=== PATIENT | female | born 1940 | race Caucasian/White ===

== ENCOUNTER 2017-03-20 11:23 | Inpatient (IN) | payer OTHER, MEDICARE, BC ==
--- NOTE | 2017-03-20 12:10 | EDM.PDOC ---
ED HPI GENERAL MEDICAL PROBLEM - General Chief Complaint: Lower Extremity Injury/Pain Stated Complaint: FELL Time Seen by Provider: 03/20/17 12:05 Source of Information: Reports: Patient History Limitations: Reports: No Limitations - History of Present Illness INITIAL COMMENTS - FREE TEXT/NARRATIVE: Pt left acu today and she caugt the ledge on the sidewalk and lost her balance. No one was with the pt when she fell. She can not exactly remember what happened. Duration: Hour(s): Location: Reports: Lower Extremity, Right Associated Symptoms: Reports: No Other Symptoms Right Hip Pain Score (Numeric/FACES): 4 - Related Data Allergies Allergy/AdvReac Type Severity Reaction Status Date / Time venom-honey bee Allergy Severe Anaphylactic Verified 03/20/17 10:28 [bee venom (honey bee)] Shock latex Allergy Unknown Rash Verified 03/20/17 10:28 Penicillins Allergy Unknown Rash Verified 03/20/17 10:28 Sulfa (Sulfonamide Allergy Unknown Shortness Verified 03/20/17 10:28 Antibiotics) of Breath sulfamethoxazole Allergy Unknown Shortness Verified 03/20/17 10:28 [From Bactrim] of Breath acetaminophen AdvReac Unknown Stomach Verified 03/20/17 10:28 [From Darvocet-N 100] Upset albuterol AdvReac Unknown Stomach Verified 03/20/17 10:28 Upset alprazolam [From Xanax] AdvReac Unknown Stomach Verified 03/20/17 10:28 Upset erythromycin base AdvReac Unknown Stomach Verified 03/20/17 10:28 [Erythromycin Base] Upset esomeprazole magnesium AdvReac Unknown Stomach Verified 03/20/17 10:28 [From Nexium] Upset ibuprofen [From Advil] AdvReac Unknown Stomach Verified 03/20/17 10:28 Upset propoxyphene HCl AdvReac Unknown Stomach Verified 03/20/17 10:28 [From Darvon] Upset propoxyphene napsylate AdvReac Unknown Stomach Verified 03/20/17 10:28 [From Darvocet-N 100] Upset trimethoprim [From Bactrim] AdvReac Unknown Stomach Verified 03/20/17 10:28 Upset metal Allergy Unknown Rash Uncoded 03/20/17 10:28 Home Meds: Home Meds Aspirin [Ecotrin] 81 mg PO DAILY 12/03/12 [History] Multivitamins 1 cap PO DAILY 12/03/12 [History] diphenhydrAMINE [Benadryl] 25 mg PO BEDTIME PRN 12/03/12 [History] Nitroglycerin [Nitrostat] 1 tab PO ASDIRECTED PRN 09/28/13 [History] Hydrocodone/Acetaminophen [Hycet 7.5 mg-325 mg/15 ml Marie] 15 ml PO Q4HR PRN # 473 solution 09/30/13 [Rx] Clopidogrel Bisulfate [Plavix] 75 mg PO DAILY 12/16/13 [History] Clindamycin HCl 150 mg PO BID PRN 02/16/15 [History] Diazepam [Valium] 5 mg PO DAILY 02/16/15 [History] Metoprolol Tartrate 25 mg PO BID 06/08/15 [History] Pantoprazole [ProTONIX] 40 mg PO DAILY 08/24/15 [History] atorvaSTATin [Lipitor] 40 mg PO BEDTIME 08/24/15 [History] Social & Family History - Tobacco Use Second Hand Smoke Exposure: No - Alcohol Use Days Per Week of Alcohol Use: 0 - Recreational Drug Use Recreational Drug Use: No Review of Systems - Review of Systems Review Of Systems: See Below Constitutional: Reports: No Symptoms Eyes: Reports: No Symptoms Ears: Reports: No Symptoms Nose: Reports: No Symptoms Mouth/Throat: Reports: No Symptoms Respiratory: Reports: No Symptoms Cardiovascular: Reports: No Symptoms GI/Abdominal: Reports: No Symptoms Genitourinary: Reports: No Symptoms Musculoskeletal: Reports: Other (pain in the pelvis and rt hip area. ) Skin: Reports: No Symptoms ED EXAM, GENERAL - Physical Exam Exam: See Below Free Text/Narrative:: pt arrived with pain in the rt hip/ She fell in the parking lot by the clinic. She developed acute pain in the rt hip/ She has an artificial leg on at the time. Exam Limited By: No Limitations General Appearance: Alert, Anxious, Moderate Distress Ears: Normal TMs Nose: Normal Inspection Throat/Mouth: Normal Inspection Head: Atraumatic Neck: Normal Inspection Respiratory/Chest: No Respiratory Distress Cardiovascular: Regular Rate, Rhythm GI/Abdominal: Soft, Non-Tender (Female) Exam: Deferred Rectal (Female) Exam: Deferred Back Exam: Normal Inspection Extremities: Normal Inspection, Other (pt has pain in the rt groin area. ) Neurological: Alert, Oriented, Normal Cognition Psychiatric: Depressed Mood Course - Vital Signs Last Recorded V/S: Last Vital Signs Temp 36.0 C 03/20/17 11:52 Pulse 57 L 03/20/17 11:52 Resp 16 03/20/17 11:52 BP 153/53 H 03/20/17 11:52 Pulse Ox 98 03/20/17 11:52 - Re-Assessments/Exams Free Text/Narrative Re-Assessment/Exam: 03/20/17 13:06 Xray revealed a impacted fracture of the rt hip Departure - Departure Time of Disposition: 13:08 Disposition: Admitted As Inpatient 68 Condition: Fair Clinical Impression: Fracture of right hip, Amputation of right lower extremity below knee, Weight loss - Discharge Information Referrals: Sonido Stein MD [Primary Care Provider] - Forms: ED Department Discharge Care Plan Goals: admit to Dr arriola.
--- NOTE | 2017-03-20 12:40 | CR ---
Hip Min 2V or 3V w Pelvis Rt HISTORY: pt fell outside of the clinic. She had been at acu FINDINGS: There is an acute, mildly impacted subcapital fracture right femoral neck. Slight valgus de formity is present. No other fracture or dislocation is identified. Bony structures are osteopenic. M ild degenerative changes came seen inferior aspect of the SI joint bilaterally. There is scattered at herosclerotic vascular calcification. Soft tissues are unremarkable. I see no joint effusion. IMPRESSION: Acute, mildly impacted subcapital fracture right femoral neck. Generalized osteopenia is noted. There is scattered atherosclerotic vascular calcification. Findings were discussed with Dr. Armando at 1234 hours.
[2017-03-20] MEDS ORDERED: Sodium Chloride 0.9% 1,000 ML IV SCH (13:15)
--- NOTE | 2017-03-20 14:01 | CR ---
Chest 1V Frontal HISTORY: preop. COMPARISON: 01/07/2012 FINDINGS: Lungs appear clear and normally aerated. Cardiomediastinal silhouette is within normal limits. Athero sclerotic aorta is redemonstrated. Old median sternotomy changes and multiple mediastinal surgical cl ips are noted. No vascular redistribution or pleural fluid can be seen. Bony structures are diffusely osteopenic. There are chronic rotator cuff tear changes both shoulders. IMPRESSION: Old median sternotomy changes. Generalized osteopenia. Chronic rotator cuff tear changes both shoulde rs. No acute cardiopulmonary disease is identified.
[2017-03-20] MEDS ORDERED: Bupivacaine 0.5%/EPINEPHrine 1:200,000 50 ML MDV ONE (14:50)
[2017-03-20] MEDS ORDERED: Povidone-Iodine 10% Soln 118.25 ML Bottle ONE (14:51)
--- NOTE | 2017-03-20 14:53 | PCM.HP ---
H&P History of Present Illness - General Date of Service: 03/20/17 Admit Problem/Dx: Admission Diagnosis/Problem Admission Diagnosis/Problem Hip fracture requiring operative repair Source of Information: Patient, Family, Provider History Limitations: Reports: No Limitations - History of Present Illness Initial Comments - Free Text/Narative: Latrice presents to the emergency room today with right hip pain. She lost her balance and fell to the ground striking the right side of her pelvis earlier today. She had immediate left hip pain and required assistance to get off of the ground. She currently reports moderate sharp and throbbing pain in the right hip. Any sort of movement makes the pain worse. Pain medications have helped to make the pain more tolerable. Initially her pain was quite severe. She felt well prior to the accident this afternoon. No recent difficulties with fevers but she has had some chills. She does not have a cough or shortness of breath. She reports that she's lost an additional 15 pounds in recent months and has been trying very hard to maintain or even gained weight. No recent difficulties with diarrhea. Workup in the emergency room revealed a subcapital right femoral neck fracture. She will be admitted for surgical intervention. Right Hip Pain Score (Numeric/FACES): 4 - Related Data Allergies/Adverse Reactions: Allergies Allergy/AdvReac Type Severity Reaction Status Date / Time venom-honey bee Allergy Severe Anaphylactic Verified 03/20/17 10:28 [bee venom (honey bee)] Shock latex Allergy Unknown Rash Verified 03/20/17 10:28 Penicillins Allergy Unknown Rash Verified 03/20/17 10:28 Sulfa (Sulfonamide Allergy Unknown Shortness Verified 03/20/17 10:28 Antibiotics) of Breath sulfamethoxazole Allergy Unknown Shortness Verified 03/20/17 10:28 [From Bactrim] of Breath acetaminophen AdvReac Unknown Stomach Verified 03/20/17 10:28 [From Darvocet-N 100] Upset albuterol AdvReac Unknown Stomach Verified 03/20/17 10:28 Upset alprazolam [From Xanax] AdvReac Unknown Stomach Verified 03/20/17 10:28 Upset erythromycin base AdvReac Unknown Stomach Verified 03/20/17 10:28 [Erythromycin Base] Upset esomeprazole magnesium AdvReac Unknown Stomach Verified 03/20/17 10:28 [From Nexium] Upset ibuprofen [From Advil] AdvReac Unknown Stomach Verified 03/20/17 10:28 Upset propoxyphene HCl AdvReac Unknown Stomach Verified 03/20/17 10:28 [From Darvon] Upset propoxyphene napsylate AdvReac Unknown Stomach Verified 03/20/17 10:28 [From Darvocet-N 100] Upset trimethoprim [From Bactrim] AdvReac Unknown Stomach Verified 03/20/17 10:28 Upset metal Allergy Unknown Rash Uncoded 03/20/17 10:28 Home Medications: Home Meds Aspirin [Ecotrin] 81 mg PO DAILY 12/03/12 [History] Multivitamins 1 cap PO DAILY 12/03/12 [History] diphenhydrAMINE [Benadryl] 25 mg PO BEDTIME PRN 12/03/12 [History] Nitroglycerin [Nitrostat] 1 tab PO ASDIRECTED PRN 09/28/13 [History] Hydrocodone/Acetaminophen [Hycet 7.5 mg-325 mg/15 ml Marie] 15 ml PO Q4HR PRN # 473 solution 09/30/13 [Rx] Clopidogrel Bisulfate [Plavix] 75 mg PO DAILY 12/16/13 [History] Clindamycin HCl 150 mg PO BID PRN 02/16/15 [History] Diazepam [Valium] 5 mg PO DAILY 02/16/15 [History] Metoprolol Tartrate 25 mg PO BID 06/08/15 [History] Pantoprazole [ProTONIX] 40 mg PO DAILY 08/24/15 [History] atorvaSTATin [Lipitor] 40 mg PO BEDTIME 08/24/15 [History] Past Medical History HEENT History: Reports: Allergic Rhinitis, Hard of Hearing, Impaired Vision Cardiovascular History: Reports: Arrhythmia, CAD, High Cholesterol, Hypertension , [place] Respiratory History: Reports: Asthma, Pneumonia, Recurrent, Sleep Apnea Gastrointestinal History: Reports: Cholelithiasis, Chronic Constipation, GERD, Hiatal Hernia [employer] History: Reports: Musculoskeletal History: Reports: Back Pain, Chronic, Neck Pain, Chronic Other Musculoskeletal History: LAMIN tiggers. torn rotator cuff Neurological History: Reports: Other (See Below) Other Neuro History: trigeminal nueroalgia Endocrine/Metabolic History: Reports: Diabetes, Type II, Obesity/BMI 30+ Hematologic History: Reports: B12 Deficiency Oncologic (Cancer) History: Reports: Cervix - Infectious Disease History Infectious Disease History: Reports: C-Difficile, Measles, Mumps - Past Surgical History HEENT Surgical History: Reports: Naso-Sinus Surgery, Tonsillectomy, Other (See Below) Other HEENT Surgeries/Procedures: clef lip repair Cardiovascular Surgical History: Reports: Coronary Artery Bypass, Percutaneous Transluminal Angioplasty Other Cardiovascular Surgeries/Procedures: x 3 GI Surgical History: Reports: Appendectomy, Bariatric Procedure, Cholecystectomy , Colonoscopy, EGD, Maddy Fundoplication Other GI Surgeries/Procedures: sleeve gastrectomy Female Surgical History: Reports: Hysterectomy Musculoskeletal Surgical History: Reports: Carpal Tunnel, Knee Replacement, Shoulder Surgery, Other (See Below) Other Musculoskeletal Surgeries/Procedures:: BKA right leg. lipomas removed from arms and legs Social & Family History - Family History Cardiac: Reports: CAD (father) - Tobacco Use Smoking Status *Q: Never Smoker Second Hand Smoke Exposure: No - Caffeine Use Caffeine Use: Reports: None - Alcohol Use Days Per Week of Alcohol Use: 0 - Recreational Drug Use Recreational Drug Use: No H&P Review of Systems - Review of Systems: Review Of Systems: See Below Free Text/Narrative: A complete 12 point review of systems was obtained. Pertinent positives and negatives are noted in the history of present illness. All other systems were reviewed and were negative except as noted. Exam - Exam Exam: See Below - Vital Signs Vital Signs: Last Vital Signs Temp 36.5 C 03/20/17 14:42 Pulse 60 03/20/17 14:42 Resp 16 03/20/17 14:42 BP 136/63 03/20/17 14:42 Pulse Ox 99 03/20/17 14:42 Weight: 45.722 kg - Exam Quality Assessment: No: Supplemental Oxygen General: Alert, Oriented, Cooperative. No: Mild Distress HEENT: Conjunctiva Clear, Mucosa Moist & [place]. No: Scleral Icterus Neck: Supple, Trachea Midline Lungs: Clear to Auscultation, Normal Respiratory Effort Cardiovascular: Regular Rate, Regular Rhythm. No: Systolic Murmur GI/Abdominal Exam: Normal Bowel Sounds, Soft, Non-Tender, No Distention, No Mass Back Exam: Normal Inspection, Full Range of Motion Extremities: No Pedal Edema (On the left), Other (Right below the knee amputation). No: Increased Warmth Peripheral Pulses: 2+: Dorsalis Pedis (L) Skin: Warm, Dry, Intact Neuro Extensive - Mental Status: Alert, Oriented x3, Nl Response to Commands Neuro Extensive - Motor, Sensory, Reflexes: CN II-XII Intact. No: Dysarthria, Abnormal Motor, Tremor Psychiatric: Alert, Normal Affect - Patient Data Lab Results Last 24 hrs: Laboratory Results - last 24 hr 03/20/17 03/20/17 Range/Units 13:35 13:35 WBC 9.6 (4.5-11.0) K/uL RBC 3.82 (3.30-5.50) M/uL Hgb 11.9 L (12.0-15.0) g/dL Hct 36.9 (36.0-48.0) % MCV 97 (80-98) fL MCH 31 (27-31) pg MCHC 32 (32-36) % Plt Count 242 (150-400) K/uL Neut % (Auto) 71 H (36-66) % Lymph % (Auto) 23 L (24-44) % [place] % (Auto) 4 (2-6) % Eos % (Auto) 1 L (2-4) % Baso % (Auto) 0 (0-1) % Sodium 141 (140-148) mmol/L Potassium 3.6 (3.6-5.2) mmol/L Chloride 103 (100-108) mmol/L Carbon Dioxide 28 (21-32) mmol/L Anion Gap 10.1 (5.0-14.0) mmol/L BUN 36 H (7-18) mg/dL Creatinine 0.7 (0.6-1.0) mg/dL Est Cr Clr Drug Dosing 50.89 mL/min Estimated GFR (MDRD) > 60 (>60) Glucose 113 H (74-106) mg/dL Calcium 8.9 (8.5-10.1) mg/dL Total Bilirubin 1.3 H (0.2-1.0) mg/dL AST 37 D (15-37) U/L ALT 86 H (12-78) U/L Alkaline Phosphatase 92 (46-116) U/L Total Protein 6.1 L (6.4-8.2) g/dL Albumin 3.3 L (3.4-5.0) g/dL Globulin 2.8 (2.3-3.5) g/dL Albumin/Globulin Ratio 1.2 (1.2-2.2) Result Diagrams: 03/20/17 13:35 03/20/17 13:35 Imaging Impressions Last 24 hrs: Chest x-ray - images personally reviewed - history of sternotomy with wires present. No evidence for mass, infiltrate or effusion. Right hip x-ray - images personally reviewed - there is evidence for a mildly impacted subcapital right femoral neck fracture. No significant dislocation. EKG INTERPRETATION EKG Date: 03/20/17 Rhythm: NSR Rate (Beats/Min): 51 [place]: Normal P-Wave: Present QRS: Normal ST-T: Normal QT: Normal *Q Meaningful Use (ADM) - VTE *Q VTE Criteria *Q: VTE Pharmacological Contraindications *Q: Patient Scheduled Surgery - VTE Risk Assess *Q Each Risk Factor Represents 1 Point: None Total Score 1 Point Risk Factors: 0 Each Risk Factor Represents 2 Points: Age 60 - 74 Years Total Score 2 Point Risk Factors: 2 Each Risk Factor Represents 3 Points: None Total Score 3 Point Risk Factors: 0 Each Risk Factor Represents 5 Points: Hip, Pelvis or Leg Fracture, Less than 1 month Total Score 5 Point Risk Factors: 5 Venous Thromboembolism Risk Factor Score *Q: 7 - Stroke *Q Stroke Criteria *Q: - AMI *Q AMI Criteria *Q: - Problem List (1) Fracture of right hip SNOMED Code(s): 242108189 ICD Code: S72.001A - FRACTURE OF UNSP PART OF NECK OF RIGHT FEMUR, INIT Status: Acute Current Visit: Yes Qualifiers: Encounter type: initial encounter Fracture type: closed Qualified Code(s) : S72.001A - Fracture of unspecified part of neck of right femur, initial encounter for closed fracture (2) Weight loss SNOMED Code(s): 33656222 ICD Code: R63.4 - ABNORMAL WEIGHT LOSS Status: Acute Current Visit: Yes (3) Coronary artery disease SNOMED Code(s): 55783736 ICD Code: I25.10 - ATHSCL HEART DISEASE OF [place] CORONARY ARTERY W/O ANG PCTRS Status: Chronic Current Visit: Yes Qualifiers: Coronary Disease-Associated Artery/Lesion type: [place] artery [place] vs. transplanted heart: [place] heart Associated angina: without angina Qualified Code(s): I25.10 - Atherosclerotic heart disease of [place] coronary artery without angina pectoris (4) Peripheral vascular disease SNOMED Code(s): 645005079 ICD Code: I73.9 - PERIPHERAL VASCULAR DISEASE, UNSPECIFIED Status: Chronic Current Visit: Yes (5) Amputation of right lower extremity below knee SNOMED Code(s): 293756597 ICD Code: Z89.511 - ACQUIRED ABSENCE OF RIGHT LEG BELOW KNEE Status: Chronic Current Visit: Yes Problem List Initiated/Reviewed/Updated: Yes Orders Last 24hrs: Active Orders 24 hr Category Date Time Status Patient Status Manage Transfer [TRANSFER] Routine ADT 03/20/17 14:33 Ordered EKG Documentation Completion [RC] ASDIRECTED Care 03/20/17 13:25 Active UA W/MICROSCOPIC [URIN] Urgent Lab 03/20/17 14:42 Ordered Ketamine [Ketalar] Med 03/20/17 16:00 Active 23 mg IV ASDIRECTED Sodium Chloride 0.9% [Normal Saline] 1,000 ml Med 03/20/17 13:15 Active IV ASDIRECTED Tranexamic Acid [Cyklokapron] 460 mg Med 03/20/17 16:00 Active Sodium Chloride 0.9% [Normal Saline] 50 ml IV Q2H Resuscitation Status Routine Resus Stat 03/20/17 14:35 Ordered EKG 12 Lead [EK] Routine Ther 03/20/17 13:25 Ordered Medication Orders Sodium Chloride (Normal Saline) 1,000 mls @ 250 mls/hr IV ASDIRECTED [facility] Last Admin: 03/20/17 13:20 Dose: 250 mls/hr Tranexamic Acid 460 mg/ Sodium (Chloride) 54.6 mls @ 218.4 mls/hr IV Q2H [facility] Stop: 03/20/17 18:14 Ketamine HCl (Ketalar) 23 mg IV ASDIRECTED [facility] Stop: 03/20/17 18:00 Assessment/Plan Comment:: ASSESSMENT AND PLAN - Right hip fracture - secondary to fall. Requires operative intervention. No obvious contraindications to having surgery at this time. Functional status acceptable. She does have a [id number] amputation on the right side but generally gets around well with her prosthesis. No personal or family history of difficulty with anesthesia. No evidence for infection at this time. -Patient medically optimized for proposed surgery -Pain control -Consult Dr. Gonzalez for surgery -Physical therapy tomorrow Coronary artery disease - History of three-vessel bypass just shy of one year ago. No active anginal symptoms. Good functional status. She is on dual antiplatelet therapy. -Continue medical management including dual antiplatelet therapy and beta rodney Peripheral vascular disease - Previous large vessel stenting in the lower extremities. She did lose her right lower leg to vascular disease years ago. Seems stable at this time. On appropriate medical management. 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 She is interested in talking to dietary and the bariatric surgery folks for further recommendations. -Dietary consult -Consult Dr. Gonzalez/Rozina Donohue -Dietary supplements Maintenance issues - - DVT prophylaxis - mechanical on left leg - GI prophylaxis - PPI - Nutrition - not indicated - Neves catheter - will be placed prior to surgery, hopefully can remove tomorrow CODE STATUS - full code Admission justification - This patient will be admitted for inpatient services and is medically appropriate meeting medical necessity for inpatient admission as outlined in my documentation. I reasonably expect the patient will require inpatient services that span a period time over 2 midnights. I reasonably expect this patient to be discharged or transferred within 96 hours after admission to the [facility]. Disposition - anticipate discharge home after the hospital stay Primary care physician - Dr Emil Ibarra M.D.
[2017-03-20] MEDS ORDERED: Ketamine 500 MG/5 ML MDV IV SCH (16:00)
[2017-03-20] MEDS ORDERED: HYDROmorphone 0.5 MG/0.5 ML Syringe IVPUSH PRN (16:12)
[2017-03-20] MEDS ORDERED: Ondansetron 4 MG/2 ML SDV IV PRN (16:12)
[2017-03-20] MEDS ORDERED: Polyethylene Glycol 3350 Powder 17 GM Packet PO PRN (16:12)
[2017-03-20] MEDS ORDERED: Acetaminophen/HYDROcodone 325-5 MG Tab PO PRN (16:12)
[2017-03-20] MEDS ORDERED: Ondansetron 4 MG Tab.DIS PO PRN (16:12)
[2017-03-20] MEDS ORDERED: Acetaminophen 325 MG Tab PO PRN (16:12)
[2017-03-20] MEDS ORDERED: fentaNYL 100 MCG/2 ML SDV ONE (16:50)
[2017-03-20] MEDS ORDERED: Propofol 200 MG/20 ML SDV ONE (16:50)
[2017-03-20] MEDS ORDERED: Midazolam 1 MG/ML 2 ML SDV ONE (16:51)
--- NOTE | 2017-03-20 16:51 | PCM.CONS ---
H&P History of Present Illness - General Admit Problem/Dx: Admission Diagnosis/Problem Admission Diagnosis/Problem Hip fracture requiring operative repair - History of Present Illness Onset of Symptoms: Reports: Today, Sudden Symptom Onset Date: 03/20/17 Duration of Symptoms: Reports: Hour(s): Location: Reports: Lower Extremity, Right Quality: Reports: Ache, Burning Severity: Moderate Improves with: Reports: None Worsens with: Reports: Movement Associated Symptoms: Reports: No Other Symptoms Right Hip Pain Score (Numeric/FACES): 8 - Related Data Allergies/Adverse Reactions: Allergies Allergy/AdvReac Type Severity Reaction Status Date / Time venom-honey bee Allergy Severe Anaphylactic Verified 03/20/17 10:28 [bee venom (honey bee)] Shock latex Allergy Unknown Rash Verified 03/20/17 10:28 Penicillins Allergy Unknown Rash Verified 03/20/17 10:28 Sulfa (Sulfonamide Allergy Unknown Shortness Verified 03/20/17 10:28 Antibiotics) of Breath sulfamethoxazole Allergy Unknown Shortness Verified 03/20/17 10:28 [From Bactrim] of Breath acetaminophen AdvReac Unknown Stomach Verified 03/20/17 10:28 [From Darvocet-N 100] Upset albuterol AdvReac Unknown Stomach Verified 03/20/17 10:28 Upset alprazolam [From Xanax] AdvReac Unknown Stomach Verified 03/20/17 10:28 Upset erythromycin base AdvReac Unknown Stomach Verified 03/20/17 10:28 [Erythromycin Base] Upset esomeprazole magnesium AdvReac Unknown Stomach Verified 03/20/17 10:28 [From Nexium] Upset ibuprofen [From Advil] AdvReac Unknown Stomach Verified 03/20/17 10:28 Upset propoxyphene HCl AdvReac Unknown Stomach Verified 03/20/17 10:28 [From Darvon] Upset propoxyphene napsylate AdvReac Unknown Stomach Verified 03/20/17 10:28 [From Darvocet-N 100] Upset trimethoprim [From Bactrim] AdvReac Unknown Stomach Verified 03/20/17 10:28 Upset metal Allergy Unknown Rash Uncoded 03/20/17 10:28 Home Medications: Home Meds Aspirin [Ecotrin] 81 mg PO DAILY 12/03/12 [History] Multivitamins 1 cap PO DAILY 12/03/12 [History] diphenhydrAMINE [Benadryl] 25 mg PO BEDTIME PRN 12/03/12 [History] Nitroglycerin [Nitrostat] 1 tab PO ASDIRECTED PRN 09/28/13 [History] Hydrocodone/Acetaminophen [Hycet 7.5 mg-325 mg/15 ml Marie] 15 ml PO Q4HR PRN # 473 solution 09/30/13 [Rx] Clopidogrel Bisulfate [Plavix] 75 mg PO DAILY 12/16/13 [History] Clindamycin HCl 150 mg PO BID PRN 02/16/15 [History] Diazepam [Valium] 5 mg PO DAILY 02/16/15 [History] Metoprolol Tartrate 25 mg PO BID 06/08/15 [History] Pantoprazole [ProTONIX] 40 mg PO DAILY 08/24/15 [History] atorvaSTATin [Lipitor] 40 mg PO BEDTIME 08/24/15 [History] Past Medical History HEENT History: Reports: Allergic Rhinitis, Hard of Hearing, Impaired Vision Cardiovascular History: Reports: Arrhythmia, CAD, High Cholesterol, Hypertension , NM Respiratory History: Reports: Asthma, Pneumonia, Recurrent, Sleep Apnea Gastrointestinal History: Reports: Cholelithiasis, Chronic Constipation, GERD, Hiatal Hernia 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 torn rotator cuff Neurological History: Reports: Other (See Below) Other Neuro History: trigeminal nueroalgia Endocrine/Metabolic History: Reports: Diabetes, Type II, Obesity/BMI 30+ Hematologic History: Reports: B12 Deficiency Oncologic (Cancer) History: Reports: Cervix - Infectious Disease History Infectious Disease History: Reports: C-Difficile, Measles, Mumps - Past Surgical History HEENT Surgical History: Reports: Naso-Sinus Surgery, Tonsillectomy, Other (See Below) Other HEENT Surgeries/Procedures: clef lip repair Cardiovascular Surgical History: Reports: Coronary Artery Bypass, Percutaneous Transluminal Angioplasty Other Cardiovascular Surgeries/Procedures: x 3 GI Surgical History: Reports: Appendectomy, Bariatric Procedure, Cholecystectomy , Colonoscopy, EGD, Maddy Fundoplication Other GI Surgeries/Procedures: sleeve gastrectomy Female Surgical History: Reports: Hysterectomy Musculoskeletal Surgical History: Reports: Carpal Tunnel, Knee Replacement, Shoulder Surgery, Other (See Below) Other Musculoskeletal Surgeries/Procedures:: BKA right leg. lipomas removed from arms and legs Social & Family History - Family History Cardiac: Reports: CAD - Tobacco Use Smoking Status *Q: Never Smoker Second Hand Smoke Exposure: No - Caffeine Use Caffeine Use: Reports: None - Alcohol Use Days Per Week of Alcohol Use: 0 - Recreational Drug Use Recreational Drug Use: No H&P Review of Systems - Review of Systems: Review Of Systems: See Below General: Reports: No Symptoms HEENT: Reports: No Symptoms Pulmonary: Reports: No Symptoms Cardiovascular: Reports: No Symptoms Gastrointestinal: Reports: No Symptoms Genitourinary: Reports: No Symptoms Musculoskeletal: Reports: Leg Pain, Joint Pain Skin: Reports: No Symptoms Psychiatric: Reports: No Symptoms Neurological: Reports: Tremors Hematologic/Lymphatic: Reports: No Symptoms Immunologic: Reports: No Symptoms Exam - Exam Exam: See Below - Vital Signs Vital Signs: Last Vital Signs Temp 97.9 F 03/20/17 16:08 Pulse 64 03/20/17 16:08 Resp 16 03/20/17 16:08 BP 128/99 H 03/20/17 16:08 Pulse Ox 94 L 03/20/17 16:08 Weight: 100 lb 8 oz - Exam General: Alert, Oriented HEENT: PERRLA, Conjunctiva Clear, EOMI, Hearing Intact, Mucosa Moist & Fitzpatrick Neck: Supple, Trachea Midline Lungs: Normal Respiratory Effort Extremities: Leg Pain, Limited Range of Motion Skin: Warm, Intact Neuro Extensive - Mental Status: Alert, Oriented x3, Normal Mood/Affect, Normal Cognition, Memory Intact Psychiatric: Alert, Normal Affect Physical Exam Comments:: 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 Diabetic. - Patient Data Lab Results Last 24 hrs: Laboratory Results - last 24 hr 03/20/17 Range/Units 14:42 Urine Color Yellow Urine Appearance Clear Urine pH 5.0 (4.5-8.0) Ur Specific [place] 1.020 (1.008-1.030) Urine Protein Negative (NEGATIVE) mg/dL Urine Glucose (UA) Normal (NEGATIVE) mg/dL Urine Ketones 15 H (NEGATIVE) mg/dL Urine Occult Blood Negative (NEGATIVE) Urine Nitrite Negative (NEGATIVE) Urine Bilirubin Negative (NEGATIVE) Urine Urobilinogen Normal (NORMAL) mg/dL Ur Leukocyte Esterase Moderate (NEGATIVE) Urine RBC 0-5 (0-5) Urine WBC 5-10 H (0-5) Ur Epithelial Cells Few Amorphous Sediment Not seen Urine Bacteria Few Urine Mucus Few Result Diagrams: 03/20/17 13:35 03/20/17 13:35 Consult PN Assessment/Plan POD#: 0 Procedures: Procedures ASSAY ALKALINE PHOSPHATASE (07/23/13) ASSAY OF AMYLASE (09/28/13) ASSAY OF FERRITIN (09/28/13) ASSAY OF FOLIC ACID SERUM (09/28/13) ASSAY OF LIPASE (09/28/13) ASSAY OF MAGNESIUM (09/28/13) ASSAY OF PHOSPHORUS (07/23/13) ASSAY OF VITAMIN B-1 (09/28/13) BILIRUBIN TOTAL (07/23/13) CARDIAC REHAB/MONITOR (08/01/15) COMPLETE CBC AUTOMATED (07/23/13) COMPLETE CBC W/AUTO DIFF WBC (09/28/13) COMPREHEN METABOLIC PANEL (09/28/13) CT ABD & PELV W/CONTRAST (09/28/13) EGD DIAGNOSTIC BRUSH WASH (04/09/13) GLUCOSE BLOOD TEST (01/30/17) HEPATOBIL SYST IMAGE W/DRUG (06/25/13) INJ TRIGGER POINT 1/2 MUSCL (03/04/13) INJECT SACROILIAC JOINT (02/16/15) INJECT SPINE LUMBAR/SACRAL (02/01/16) INJECT TRIGGER POINTS 3/> (02/27/17) LAP INC HERNIA REPAIR (07/23/13) LAPAROSCOPIC CHOLECYSTECTOMY (07/23/13) MEASURE BLOOD OXYGEN LEVEL (09/28/13) MRI LUMBAR SPINE W/O DYE (11/01/14) NJX INTERLAMINAR LMBR/SAC (07/18/16) POLYSOM 6/>YRS CPAP 4/> PARM (05/13/13) ROUTINE VENIPUNCTURE (09/28/13) THERAPEUTIC EXERCISES (12/30/12) VIT D 1 25-DIHYDROXY (09/28/13) VITAMIN B-12 (09/28/13) (1) Fracture of right hip SNOMED Code(s): 104345676 Code(s): S72.001A - FRACTURE OF UNSP PART OF NECK OF RIGHT FEMUR, INIT Current Visit: Yes Qualifiers: Encounter type: initial encounter Fracture type: closed Qualified Code(s) : S72.001A - Fracture of unspecified part of neck of right femur, initial encounter for closed fracture Problem List Initiated/Reviewed/Updated: Yes My Orders Last 24 Hours: My Active Orders 03/20/17 16:35 Clindamycin Phosphate [Cleocin] 600 mg Sodium Chloride 0.9% [Normal Saline] 50 ml IV ONETIME 03/20/17 16:43 GLUCOSE POC LAB TO COLLECT [POC] Stat Plan: a: 76 female right subcapital femoral neck fracture P: to OR for R hip hemiarthroplasty. risk and benefits discussed with pt and
[2017-03-20] MEDS ORDERED: ePHEDrine 50 MG/ML SDV ONE (17:20)
[2017-03-20] MEDS: SODIUM CHLORIDE 0.9% IV SCH ×3 (17:36→18:09)
[2017-03-20] MEDS: TRANEXAMIC ACID IV SCH ×3 (17:36→18:09)
[2017-03-20] MEDS: Gentamicin 40 MG/ML 2 ML Vial ONE ×2 (17:47→18:05)
[2017-03-20] MEDS ORDERED: Vancomycin 1 GM SDV ONE (17:53)
[2017-03-20] MEDS ORDERED: Lactated Ringers 1,000 ML ONE (18:07)
[2017-03-20] MEDS ORDERED: Zolpidem 5 MG Tab PO PRN (18:23)
[2017-03-20] MEDS ORDERED: Ondansetron 4 MG/2 ML SDV IVPUSH PRN (18:23)
[2017-03-20] MEDS ORDERED: diphenhydrAMINE 50 MG/ML SDV IVPUSH PRN (18:23)
[2017-03-20] MEDS ORDERED: Naloxone 0.4 MG/ML SDV IVPUSH PRN (18:23)
[2017-03-20] MEDS ORDERED: Aluminum Hydroxide/Magnesium Hydroxide/Simethicone Susp 30 ML Cup PO PRN (18:23)
[2017-03-20] MEDS: Sodium Chloride 0.9% 1,000 ML IV SCH (19:51)
[2017-03-20] MEDS: Docusate Sodium 100 MG Cap PO SCH (20:05)
[2017-03-20] MEDS: Metoprolol Tartrate 25 MG Tab PO SCH (20:05)
[2017-03-20] MEDS: Magnesium Hydroxide 400 MG/5 ML Susp 30 ML Cup PO SCH (20:05)
[2017-03-20] MEDS: atorvaSTATin 20 MG Tab PO SCH (20:05)
[2017-03-20] MEDS: Diazepam 5 MG Tab PO PRN (20:47)
[2017-03-20] MEDS: Acetaminophen/HYDROcodone 325-5 MG Tab PO PRN (20:48)
[2017-03-20] MEDS: Sennosides 8.6 MG Tab PO SCH (20:50)
--- NOTE | 2017-03-20 23:04 | OR ---
DATE OF PROCEDURE: 03/20/2017 PREOPERATIVE DIAGNOSIS: Right femoral neck fracture closed. POSTOPERATIVE DIAGNOSIS: Right femoral neck fracture closed. PROCEDURE: Right hip hemiarthroplasty. PLANER TAILER: Irina Ruiz NP Physician assistant fitness manager, Irina Ruiz NP, played an essential role in assisting in this case, helping to position the patient, retract structures as needed, as well as suturing and cutting sutures as indicated. Her presence improved patient's safety and decreased operative time. ANESTHESIA: Spinal anesthesia plus conscious sedation. FLUID: Lactated Ringer solution. ESTIMATED BLOOD LOSS: 50 mL. COMPLICATIONS: None. SPECIMEN: None. DISCHARGE DISPOSITION: Stable to PACU. INDICATIONS FOR THE PROCEDURE: The patient left the Pain [facility] and then fell on her right hip. She was seen in the emergency department where she was found to have the above- mentioned diagnosis confirmed by imaging. She was then admitted to the hospitalist service. I then arranged for surgery at 4:30 in the afternoon. Risks and benefits of the procedure were explained to the patient. Informed consent was obtained. DETAILS OF PROCEDURE: The patient was seen preoperatively by myself, the anesthesia staff in the hospital room. The operative site was marked. She was brought to the operative suite by Anesthesia staff where spinal anesthesia plus conscious sedation was administered. She was placed into a left lateral recumbent position with an axillary roll. All extremities found to be well padded. Pegboard was used with gel pads for positioning. The right lower extremity was then prepped and draped in a sterile manner. Time-out was called identifying the correct patient, correct procedure, the correct site, and antibiotics had been with an appropriate period of time. An incision was made approximately 5 cm proximal to the greater trochanter down to the level of lesser trochanter. Bleeding during the case was controlled with Bovie electrocautery as well as Aquamantys cautery unit. This was carried down to the deep fascia. Gelpi's was used for retraction. I then went through the deep fascia and then used a Charnley retractor. I then went through the IT band and gluteus minimus around the capsule, leaving a small amount of capsule for closure and down the level of lesser trochanter. I then placed sharp Homans around the femoral neck and then slightly externally rotated the hip and made my saw cut using a reciprocating saw. I then used a corkscrew to remove the femoral neck and head. The head was 44 mm, which was what we were expecting based on her templating. I then inspected the acetabulum and did not see any other bone fragments. We then sequentially broached from 4-12. I then used a zero neck trial and then 44 head trial. This was very tight, but provided excellent stability. We then dislocated the hip and then removed all components, copiously irrigated with saline, inserted a 12 x 144 stem with a zero neck standard offset and 28/44 bipolar head. I tapped that in place and then relocated the hip. This provided excellent stability. We then irrigated copiously with saline. I applied a small amount of vancomycin powder inside the joint. We then closed the deep capsule, gluteus minimus, and gluteus medius with #5 Ethibond sutures. Although her tissue was very poor, we did get a very nice closure. The Charnley was then removed and irrigated with saline and then placed the remainder of the vancomycin powder below and above the deep fascia and then closed with #1 Stratafix in a running manner and then closed the subcu with a #2 Stratafix in a running manner followed by skin nadya, followed by sterile dressing. The patient was then allowed to be transferred to our hospital bed in a supine position and taken to the PACU in stable condition. Garland Gonzalez DO /[id number]
[2017-03-20] MEDS: Morphine 2 MG/ML Syringe IVPUSH PRN (23:21)
[2017-03-21] MEDS: oxyCODONE 5 MG Tab PO PRN ×4 (02:48→18:18)
[2017-03-21] MEDS: Diazepam 5 MG Tab PO PRN ×5 (02:49→22:33)
[2017-03-21] MEDS: Sodium Chloride 0.9% 1,000 ML IV SCH ×2 (03:48→13:54)
[2017-03-21] MEDS: Clopidogrel 75 MG Tab PO SCH (08:50)
[2017-03-21] MEDS: Metoprolol Tartrate 25 MG Tab PO SCH ×2 (08:50→21:22)
[2017-03-21] MEDS: Pantoprazole 40 MG Tab.CR PO SCH (08:50)
[2017-03-21] MEDS: Docusate Sodium 100 MG Cap PO SCH ×2 (08:54→21:23)
[2017-03-21] MEDS: Bisacodyl 5 MG Tab PO SCH (08:55)
[2017-03-21] MEDS: Magnesium Hydroxide 400 MG/5 ML Susp 30 ML Cup PO SCH ×2 (08:55→21:18)
[2017-03-21] MEDS: Sodium Chloride 0.9% 10 ML Syringe FLUSH SCH (08:55)
[2017-03-21] MEDS: Sennosides 8.6 MG Tab PO SCH ×2 (08:55→21:24)
[2017-03-21] MEDS ORDERED: Aspirin 81 MG Tab.EC PO SCH (09:00)
--- NOTE | 2017-03-21 09:45 | CR ---
Hip Min 2V or 3V Rt HISTORY: post op FINDINGS: Postoperative position and alignment right total hip arthroplasty appear satisfactory. No complicatio n can be seen. Skin nadya are noted. Air in the soft tissues and joint is consistent with the posto perative state. Atherosclerotic vascular calcification is noted. IMPRESSION: Satisfactory postoperative position and alignment right total hip arthroplasty. No complication ident ified.
[2017-03-21] MEDS: Aspirin 81 MG Tab.EC PO SCH (11:44)
--- NOTE | 2017-03-21 13:07 | PCM.PN ---
- General Info Date of Service: 03/21/17 Functional Status: Reports: Pain Controlled, Tolerating Diet - Review of Systems General: Reports: Weakness. Denies: Fever Musculoskeletal: Reports: Leg Pain (right) Systems Review Comment:: no acute events overnight after an uneventful surgery last night. She is reporting moderately severe right hip pain this morning. she does not feel short of breath and does not have any abdominal pain. She has not tried to bear any weight on the hip as of yet. Vital signs have been stable. - Patient Data Vitals - Most Recent: Last Vital Signs Temp 36.6 C 03/21/17 11:00 Pulse 91 03/21/17 11:00 Resp 17 03/21/17 11:00 BP 148/52 H 03/21/17 11:00 Pulse Ox 96 03/21/17 12:18 Weight - Most Recent: 45.586 kg I&O - Last 24 Hours: Intake & Output 03/20/17 03/21/17 03/21/17 22:59 06:59 14:59 Intake Total 300 1853 Output Total 144 396 Balance 156 1457 Lab Results Last 24 Hours: Laboratory Results - last 24 hr 03/20/17 03/20/17 03/21/17 Range/Units 14:42 16:53 04:50 WBC (4.5-11.0) K/uL RBC (3.30-5.50) M/uL Hgb (12.0-15.0) g/dL Hct (36.0-48.0) % MCV (80-98) fL MCH (27-31) pg MCHC (32-36) % Plt Count (150-400) K/uL Neut % (Auto) (36-66) % Lymph % (Auto) (24-44) % [place] % (Auto) (2-6) % Eos % (Auto) (2-4) % Baso % (Auto) (0-1) % Sodium 141 (140-148) mmol/L Potassium 4.0 (3.6-5.2) mmol/L Chloride 107 (100-108) mmol/L Carbon Dioxide 27 (21-32) mmol/L Anion Gap 7.2 (5.0-14.0) mmol/L BUN 22 H (7-18) mg/dL Creatinine 0.7 (0.6-1.0) mg/dL Est Cr Clr Drug Dosing 50.65 mL/min Estimated GFR (MDRD) > 60 (>60) Glucose 149 H (74-106) mg/dL Calcium 7.9 L (8.5-10.1) mg/dL TSH, Ultra Sensitive 1.118 (0.358-3.740) uIU/mL Urine Color Yellow Urine Appearance Clear Urine pH 5.0 (4.5-8.0) Ur Specific [place] 1.020 (1.008-1.030) Urine Protein Negative (NEGATIVE) mg/dL Urine Glucose (UA) Normal (NEGATIVE) mg/dL Urine Ketones 15 H (NEGATIVE) mg/dL Urine Occult Blood Negative (NEGATIVE) Urine Nitrite Negative (NEGATIVE) Urine Bilirubin Negative (NEGATIVE) Urine Urobilinogen Normal (NORMAL) mg/dL Ur Leukocyte Esterase Moderate (NEGATIVE) Urine RBC 0-5 (0-5) Urine WBC 5-10 H (0-5) Ur Epithelial Cells Few Amorphous Sediment Not seen Urine Bacteria Few Urine Mucus Few Blood Type AB POSITIVE Gel Antibody Screen Negative 03/21/17 Range/Units 04:50 WBC 9.5 (4.5-11.0) K/uL RBC 2.93 L (3.30-5.50) M/uL Hgb 9.3 L D (12.0-15.0) g/dL Hct 28.3 L (36.0-48.0) % MCV 97 (80-98) fL MCH 32 H (27-31) pg MCHC 33 (32-36) % Plt Count 184 (150-400) K/uL Neut % (Auto) 79 H (36-66) % Lymph % (Auto) 12 L (24-44) % [place] % (Auto) 6 (2-6) % Eos % (Auto) 3 (2-4) % Baso % (Auto) 0 (0-1) % Sodium (140-148) mmol/L Potassium (3.6-5.2) mmol/L Chloride (100-108) mmol/L Carbon Dioxide (21-32) mmol/L Anion Gap (5.0-14.0) mmol/L BUN (7-18) mg/dL Creatinine (0.6-1.0) mg/dL Est Cr Clr Drug Dosing mL/min Estimated GFR (MDRD) (>60) Glucose (74-106) mg/dL Calcium (8.5-10.1) mg/dL TSH, Ultra Sensitive (0.358-3.740) uIU/mL Urine Color Urine Appearance Urine pH (4.5-8.0) Ur Specific [place] (1.008-1.030) Urine Protein (NEGATIVE) mg/dL Urine Glucose (UA) (NEGATIVE) mg/dL Urine Ketones (NEGATIVE) mg/dL Urine Occult Blood (NEGATIVE) Urine Nitrite (NEGATIVE) Urine Bilirubin (NEGATIVE) Urine Urobilinogen (NORMAL) mg/dL Ur Leukocyte Esterase (NEGATIVE) Urine RBC (0-5) Urine WBC (0-5) Ur Epithelial Cells Amorphous Sediment Urine Bacteria Urine Mucus Blood Type Gel Antibody Screen Med Orders - Current: Current Medications Acetaminophen (Tylenol) 650 mg PO Q4H PRN PRN Reason: Pain (Mild 1-3)/fever Last Admin: 03/21/17 02:49 Dose: 650 mg Hydrocodone Bitart/Acetaminophen ([place] 325-5 Mg) 1 - 2 tab PO Q4H PRN PRN Reason: Pain (moderate 4-6) Last Admin: 03/20/17 20:48 Dose: 2 tab Al Hydroxide/Mg Hydroxide (Mag-Al Plus) 30 ml PO Q4H PRN PRN Reason: Constipation Aspirin (Halfprin) 81 mg PO DAILY [facility] Last Admin: 03/21/17 11:44 Dose: 81 mg Atorvastatin Calcium (Lipitor) 40 mg PO BEDTIME [facility] Last Admin: 03/20/17 20:05 Dose: 40 mg Bisacodyl (Dulcolax) 10 mg PO DAILY [facility] Last Admin: 03/21/17 08:55 Dose: Not Given Clopidogrel Bisulfate (Plavix) 75 mg PO DAILY [facility] Last Admin: 03/21/17 08:50 Dose: 75 mg Diazepam (Valium.) 5 mg PO Q4H PRN PRN Reason: Muscle Spasm Last Admin: 03/21/17 08:51 Dose: 5 mg Diphenhydramine HCl (Benadryl) 25 mg IVPUSH Q4H PRN PRN Reason: Itching Docusate Sodium (Colace) 100 mg PO BID [facility] Last Admin: 03/21/17 08:54 Dose: Not Given Hydromorphone HCl (Dilaudid) 0.5 - 1 mg IVPUSH Q2H PRN PRN Reason: Pain (severe 7-10) Magnesium Hydroxide (Milk Of Magnesia) 30 ml PO BID [facility] Last Admin: 03/21/17 08:55 Dose: Not Given Metoprolol Tartrate (Lopressor) 25 mg PO BID [facility] Last Admin: 03/21/17 08:50 Dose: 25 mg Morphine Sulfate (Morphine) 2 mg IVPUSH Q2H PRN PRN Reason: Pain Last Admin: 03/20/17 23:21 Dose: 2 mg Naloxone HCl (Narcan) 0.1 mg IVPUSH ONETIME PRN PRN Reason: Oversedation Ondansetron HCl (Zofran Odt) 4 mg PO Q6H PRN PRN Reason: Nausea able to take PO Ondansetron HCl (Zofran) 4 mg IV Q6H PRN PRN Reason: Nausea/Vomiting Ondansetron HCl (Zofran) 8 mg IVPUSH Q4H PRN PRN Reason: Nausea/Vomiting Oxycodone HCl (Oxycodone) 10 mg PO Q4H PRN PRN Reason: Pain Stop: 03/21/17 18:26 Last Admin: 03/21/17 08:51 Dose: 10 mg Pantoprazole Sodium (Protonix) 40 mg PO DAILY@0730 [facility] Last Admin: 03/21/17 08:50 Dose: 40 mg Polyethylene Glycol (Miralax) 17 gm PO DAILY PRN PRN Reason: Constipation Senna (Senna) 8.6 mg PO BID [facility] Last Admin: 03/21/17 08:55 Dose: Not Given Senna/Docusate Sodium (Senna Plus) 1 tab PO BID PRN PRN Reason: Constipation Sodium Chloride (Saline Flush) 10 ml FLUSH DAILY [facility] Last Admin: 03/21/17 08:55 Dose: Not Given Tramadol HCl (Ultram) 100 mg PO Q6H PRN PRN Reason: Pain Zolpidem Tartrate (Ambien) 5 mg PO BEDTIME PRN PRN Reason: Sleep Discontinued Medications Hydrocodone Bitart/Acetaminophen ([place] 325-5 Mg) 1 - 2 tab PO Q4H PRN PRN Reason: Pain (moderate 4-6) Aspirin (Halfprin) 81 mg PO DAILY [facility] Aspirin (Ecotrin) 325 mg PO DAILY [facility] Bupivacaine HCl/Epinephrine Bitart ([place] 0.5%/Epinephrine 1:200,000) Confirm Administered Dose 50 ml .ROUTE .STK-MED ONE Stop: 03/20/17 14:51 Last Admin: 03/20/17 17:47 Dose: 30 ml Ephedrine Sulfate (Ephedrine Sulfate) Confirm Administered Dose 50 mg .ROUTE .STK-MED ONE Stop: 03/20/17 17:21 Fentanyl (Sublimaze) Confirm Administered Dose 100 mcg .ROUTE .STK-[facility] ONE Stop: 03/20/17 16:51 Gentamicin Sulfate (Gentamicin) Confirm Administered Dose 240 mg .ROUTE .STK- MED ONE Stop: 03/20/17 14:51 Last Admin: 03/20/17 17:47 Dose: 240 mg Sodium Chloride (Normal Saline) 1,000 mls @ 250 mls/hr IV ASDIRECTED [facility] Last Admin: 03/20/17 13:20 Dose: 250 mls/hr Tranexamic Acid 460 mg/ Sodium (Chloride) 54.6 mls @ 218.4 mls/hr IV Q2H [facility] Stop: 03/20/17 18:14 Last Admin: 03/20/17 18:09 Dose: 218.4 mls/hr Clindamycin Phosphate 600 mg/ (Sodium Chloride) 54 mls @ 108 mls/hr IV ONETIME ONE Stop: 03/20/17 17:04 Last Admin: 03/20/17 17:35 Dose: 108 mls/hr Sodium Chloride (Normal Saline) 1,000 mls @ 125 mls/hr IV ASDIRECTED [facility] Last Admin: 03/21/17 03:48 Dose: 125 mls/hr Lactated Ringer's (Ringers, Lactated) Confirm Administered Dose 1,000 mls @ as directed .ROUTE .STK-MED ONE Stop: 03/20/17 18:08 Clindamycin Phosphate 600 mg/ (Sodium Chloride) 54 mls @ 100 mls/hr IV Q6H [facility] Stop: 03/21/17 12:03 Last Admin: 03/21/17 11:44 Dose: 100 mls/hr Ketamine HCl (Ketalar) 23 mg IV ASDIRECTED [facility] Stop: 03/20/17 18:00 Midazolam HCl (Versed 1 Mg/Ml) Confirm Administered Dose 2 mg .ROUTE .STK-MED ONE Stop: 03/20/17 16:52 Oxycodone/Acetaminophen (Percocet 325-5 Mg) 2 tab PO Q4H PRN PRN Reason: Pain Povidone Iodine (Betadine 10% Soln) Confirm Administered Dose 1 ml .ROUTE .STK- MED ONE Stop: 03/20/17 14:52 Last Admin: 03/20/17 17:48 Dose: 1 ml Propofol (Diprivan 20 Ml) Confirm Administered Dose 200 mg .ROUTE .STK-MED ONE Stop: 03/20/17 16:51 Vancomycin HCl (Vancomycin) Confirm Administered Dose 1 gm .ROUTE .STK-MED ONE Stop: 03/20/17 17:54 - Exam Quality Assessment: Supplemental Oxygen General: Alert, Oriented, Cooperative, No Acute Distress Neck: Supple Lungs: Clear to Auscultation, Normal Respiratory Effort Cardiovascular: Regular Rate, Regular Rhythm GI/Abdominal Exam: Normal Bowel Sounds, Soft, Non-Tender, No Distention Extremities: No Pedal Edema (on left), Other (right thigh covered with dry intact dressings). No: Increased Warmth Skin: Warm, Dry Psy/Mental Status: Alert, Normal Affect - Problem List & Annotations (1) Fracture of right hip SNOMED Code(s): 513639313 Code(s): S72.001A - FRACTURE OF UNSP PART OF NECK OF RIGHT FEMUR, INIT Status: Acute Current Visit: Yes Qualifiers: Encounter type: initial encounter Fracture type: closed Qualified Code(s) : S72.001A - Fracture of unspecified part of neck of right femur, initial encounter for closed fracture (2) Weight loss SNOMED Code(s): 21818341 Code(s): R63.4 - ABNORMAL WEIGHT LOSS Status: Acute Current Visit: Yes (3) Coronary artery disease SNOMED Code(s): 86939673 Code(s): I25.10 - ATHSCL HEART DISEASE OF [place] CORONARY ARTERY W/O ANG PCTRS Status: Chronic Current Visit: Yes Qualifiers: Coronary Disease-Associated Artery/Lesion type: [place] artery [place] vs. transplanted heart: [place] heart Associated angina: without angina Qualified Code(s): I25.10 - Atherosclerotic heart disease of [place] coronary artery without angina pectoris (4) Peripheral vascular disease SNOMED Code(s): 310962153 Code(s): I73.9 - PERIPHERAL VASCULAR DISEASE, UNSPECIFIED Status: Chronic Current Visit: Yes (5) Amputation of right lower extremity below knee SNOMED Code(s): 031267806 Code(s): Z89.511 - ACQUIRED ABSENCE OF RIGHT LEG BELOW KNEE Status: Chronic Current Visit: Yes - Problem List Review Problem List Initiated/Reviewed/Updated: Yes - My Orders Last 24 Hours: My Active Orders 03/20/17 14:35 Resuscitation Status Routine 03/20/17 16:12 Patient Status [ADT] Routine Bedrest Bedside Commode [RC] ASDIRECTED Dietary Supplements [RC] TIDMEALS Intake and Output [RC] QSHIFT Notify Provider Consults [RC] ASDIRECTED Notify Provider Vital Signs [RC] ASDIRECTED Oxygen Therapy [RC] PRN Up With Assistance [RC] ASDIRECTED VTE/DVT Education [RC] Per Unit Routine Vital Signs [RC] Q4H Consult to Scratcher [CONS] Routine Consult to Physician [CONS] Routine Acetaminophen [Tylenol] 650 mg PO Q4H PRN Docusate Sodium/Sennosides [Senna Plus] 1 tab PO BID PRN HYDROmorphone [Dilaudid] 0.5 - 1 mg IVPUSH Q2H PRN Ondansetron [Zofran ODT] 4 mg PO Q6H PRN Ondansetron [Zofran] 4 mg IV Q6H PRN Polyethylene Glycol 3350 [MiraLAX] 17 gm PO DAILY PRN Sodium Chloride 0.9% [Normal Saline] 1,000 ml IV ASDIRECTED Sequential Compression Device [OM.PC] Per Unit Routine VTE Pharmacological Contraindications [AST] Per Unit Routine 03/20/17 18:43 Acetaminophen/HYDROcodone [[place] 325-5 MG] 1 - 2 tab PO Q4H PRN 03/21/17 09:15 Aspirin [Halfprin] 81 mg PO DAILY 03/21/17 12:42 Consult to Scratcher [CONS] Routine 03/21/17 13:03 Communication Order [RC] ROUTINE 03/21/17 13:05 Sodium Chloride 0.9% [Normal Saline] 1,000 ml IV ASDIRECTED 03/22/17 05:00 BASIC METABOLIC PANEL,BMP [CHEM] Timed CBC W/O DIFF,HEMOGRAM [HEME] Timed (1) - Plan Plan:: ASSESSMENT AND PLAN - Right hip fracture - secondary to fall. had a right hemiarthroplasty last night. Pain is moderately severe at this time but otherwise she is stable. -postop cares as indicated per orthopedic team -Pain control -Physical therapy Coronary artery disease - vitals stable since surgery, no angina type symptoms reported. She is on dual antiplatelet therapy. -Continue medical management including dual antiplatelet therapy and beta rodney Peripheral vascular disease - Previous large vessel stenting in the lower extremities. stable at this time. 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 -Dietary consult -outpatient follow-up with Dr. Gonzalez/Rozina Donohue -Dietary supplements Maintenance issues - - DVT prophylaxis - mechanical on left leg - GI prophylaxis - PPI - Nutrition - not indicated - Nev[place] catheter - plan to remove today Disposition - anticipate discharge home after the hospital stay Familia Ibarra M.D.
[2017-03-21] MEDS ORDERED: Acetaminophen/oxyCODONE 325-5 MG Tab PO PRN (18:26)
[2017-03-21] MEDS ORDERED: Aspirin 325 MG Tab.EC PO SCH (18:26)
[2017-03-21] MEDS: Morphine 2 MG/ML Syringe IVPUSH PRN (21:20)
[2017-03-21] MEDS: atorvaSTATin 20 MG Tab PO SCH (21:21)
[2017-03-21] MEDS: Acetaminophen/HYDROcodone 325-5 MG Tab PO PRN (22:33)
[2017-03-22] MEDS: Sodium Chloride 0.9% 1,000 ML IV SCH ×2 (03:39→09:34)
[2017-03-22] MEDS: Acetaminophen/HYDROcodone 325-5 MG Tab PO PRN (03:49)
[2017-03-22] MEDS: Diazepam 5 MG Tab PO PRN ×4 (03:49→21:57)
--- NOTE | 2017-03-22 08:09 | PCM.PN ---
- General Info Date of Service: 03/21/17 Functional Status: Reports: Pain Controlled, Tolerating Diet - Patient Data Vitals - Most Recent: Last Vital Signs Temp 36.6 C 03/22/17 07:34 Pulse 60 03/22/17 07:34 Resp 16 03/22/17 07:34 BP 132/58 L 03/22/17 07:34 Pulse Ox 96 03/22/17 07:34 Weight - Most Recent: 144 lb I&O - Last 24 Hours: Intake & Output 03/21/17 03/22/17 03/22/17 22:59 06:59 14:59 Intake Total 1162 1328 Output Total 775 1025 Balance 387 303 Lab Results Last 24 Hours: Laboratory Results - last 24 hr 03/22/17 03/22/17 Range/Units 06:04 06:04 WBC 7.8 (4.5-11.0) K/uL RBC 2.97 L (3.30-5.50) M/uL Hgb 9.1 L (12.0-15.0) g/dL Hct 29.0 L (36.0-48.0) % MCV 98 (80-98) fL MCH 31 (27-31) pg MCHC 31 L (32-36) % Plt Count 173 (150-400) K/uL Sodium 141 (140-148) mmol/L Potassium 3.9 (3.6-5.2) mmol/L Chloride 106 (100-108) mmol/L Carbon Dioxide 29 (21-32) mmol/L Anion Gap 6.0 (5.0-14.0) mmol/L BUN 9 D (7-18) mg/dL Creatinine 0.6 (0.6-1.0) mg/dL Est Cr Clr Drug Dosing 59.09 mL/min Estimated GFR (MDRD) > 60 (>60) Glucose 131 H (74-106) mg/dL Calcium 8.1 L (8.5-10.1) mg/dL Med Orders - Current: Current Medications Acetaminophen (Tylenol) 650 mg PO Q4H PRN PRN Reason: Pain (Mild 1-3)/fever Last Admin: 03/21/17 02:49 Dose: 650 mg Hydrocodone Bitart/Acetaminophen ([place] 325-5 Mg) 1 - 2 tab PO Q4H PRN PRN Reason: Pain (moderate 4-6) Last Admin: 03/22/17 03:49 Dose: 2 tab Al Hydroxide/Mg Hydroxide (Mag-Al Plus) 30 ml PO Q4H PRN PRN Reason: Constipation Aspirin (Halfprin) 81 mg PO DAILY [facility] Last Admin: 03/21/17 11:44 Dose: 81 mg Atorvastatin Calcium (Lipitor) 40 mg PO BEDTIME [facility] Last Admin: 03/21/17 21:21 Dose: 40 mg Bisacodyl (Dulcolax) 10 mg PO DAILY [facility] Last Admin: 03/21/17 08:55 Dose: Not Given Clopidogrel Bisulfate (Plavix) 75 mg PO DAILY [facility] Last Admin: 03/21/17 08:50 Dose: 75 mg Diazepam (Valium.) 5 mg PO Q4H PRN PRN Reason: Muscle Spasm Last Admin: 03/22/17 03:49 Dose: 5 mg Diphenhydramine HCl (Benadryl) 25 mg IVPUSH Q4H PRN PRN Reason: Itching Docusate Sodium (Colace) 100 mg PO BID [facility] Last Admin: 03/21/17 21:23 Dose: 100 mg Hydromorphone HCl (Dilaudid) 0.5 - 1 mg IVPUSH Q2H PRN PRN Reason: Pain (severe 7-10) Sodium Chloride (Normal Saline) 1,000 mls @ 50 mls/hr IV ASDIRECTED [facility] Last Admin: 03/22/17 03:39 Dose: 50 mls/hr Magnesium Hydroxide (Milk Of Magnesia) 30 ml PO BID [facility] Last Admin: 03/21/17 21:18 Dose: Not Given Metoprolol Tartrate (Lopressor) 25 mg PO BID [facility] Last Admin: 03/21/17 21:22 Dose: 25 mg Morphine Sulfate (Morphine) 2 mg IVPUSH Q2H PRN PRN Reason: Pain Last Admin: 03/21/17 21:20 Dose: 2 mg Naloxone HCl (Narcan) 0.1 mg IVPUSH ONETIME PRN PRN Reason: Oversedation Ondansetron HCl (Zofran Odt) 4 mg PO Q6H PRN PRN Reason: Nausea able to take PO Ondansetron HCl (Zofran) 4 mg IV Q6H PRN PRN Reason: Nausea/Vomiting Ondansetron HCl (Zofran) 8 mg IVPUSH Q4H PRN PRN Reason: Nausea/Vomiting Pantoprazole Sodium (Protonix) 40 mg PO DAILY@0730 [facility] Last Admin: 03/21/17 08:50 Dose: 40 mg Polyethylene Glycol (Miralax) 17 gm PO DAILY PRN PRN Reason: Constipation Senna (Senna) 8.6 mg PO BID [facility] Last Admin: 03/21/17 21:24 Dose: 8.6 mg Senna/Docusate Sodium (Senna Plus) 1 tab PO BID PRN PRN Reason: Constipation Sodium Chloride (Saline Flush) 10 ml FLUSH DAILY [facility] Last Admin: 03/21/17 08:55 Dose: Not Given Tramadol HCl (Ultram) 100 mg PO Q6H PRN PRN Reason: Pain Zolpidem Tartrate (Ambien) 5 mg PO BEDTIME PRN PRN Reason: Sleep Discontinued Medications Hydrocodone Bitart/Acetaminophen ([place] 325-5 Mg) 1 - 2 tab PO Q4H PRN PRN Reason: Pain (moderate 4-6) Aspirin (Halfprin) 81 mg PO DAILY [facility] Aspirin (Ecotrin) 325 mg PO DAILY [facility] Bupivacaine HCl/Epinephrine Bitart ([place] 0.5%/Epinephrine 1:200,000) Confirm Administered Dose 50 ml .ROUTE .STK-MED ONE Stop: 03/20/17 14:51 Last Admin: 03/20/17 17:47 Dose: 30 ml Ephedrine Sulfate (Ephedrine Sulfate) Confirm Administered Dose 50 mg .ROUTE .STK-MED ONE Stop: 03/20/17 17:21 Fentanyl (Sublimaze) Confirm Administered Dose 100 mcg .ROUTE .STK-MED ONE Stop: 03/20/17 16:51 Gentamicin Sulfate (Gentamicin) Confirm Administered Dose 240 mg .ROUTE .STK- MED ONE Stop: 03/20/17 14:51 Last Admin: 03/20/17 17:47 Dose: 240 mg Sodium Chloride (Normal Saline) 1,000 mls @ 250 mls/hr IV ASDIRECTED [facility] Last Admin: 03/20/17 13:20 Dose: 250 mls/hr Tranexamic Acid 460 mg/ Sodium (Chloride) 54.6 mls @ 218.4 mls/hr IV Q2H [facility] Stop: 03/20/17 18:14 Last Admin: 03/20/17 18:09 Dose: 218.4 mls/hr Clindamycin Phosphate 600 mg/ (Sodium Chloride) 54 mls @ 108 mls/hr IV ONETIME ONE Stop: 03/20/17 17:04 Last Admin: 03/20/17 17:35 Dose: 108 mls/hr Sodium Chloride (Normal Saline) 1,000 mls @ 125 mls/hr IV ASDIRECTED [facility] Last Admin: 03/21/17 03:48 Dose: 125 mls/hr Lactated Ringer's (Ringers, Lactated) Confirm Administered Dose 1,000 mls @ as directed .ROUTE .STK-MED ONE Stop: 03/20/17 18:08 Clindamycin Phosphate 600 mg/ (Sodium Chloride) 54 mls @ 100 mls/hr IV Q6H [facility] Stop: 03/21/17 12:03 Last Admin: 03/21/17 11:44 Dose: 100 mls/hr Ketamine HCl (Ketalar) 23 mg IV ASDIRECTED [facility] Stop: 03/20/17 18:00 Midazolam HCl (Versed 1 Mg/Ml) Confirm Administered Dose 2 mg .ROUTE .STK-MED ONE Stop: 03/20/17 16:52 Oxycodone HCl (Oxycodone) 10 mg PO Q4H PRN PRN Reason: Pain Stop: 03/21/17 18:26 Last Admin: 03/21/17 18:18 Dose: 10 mg Oxycodone/Acetaminophen (Percocet 325-5 Mg) 2 tab PO Q4H PRN PRN Reason: Pain Povidone Iodine (Betadine 10% Soln) Confirm Administered Dose 1 ml .ROUTE .STK- MED ONE Stop: 03/20/17 14:52 Last Admin: 03/20/17 17:48 Dose: 1 ml Propofol (Diprivan 20 Ml) Confirm Administered Dose 200 mg .ROUTE .STK-MED ONE Stop: 03/20/17 16:51 Vancomycin HCl (Vancomycin) Confirm Administered Dose 1 gm .ROUTE .STK-MED ONE Stop: 03/20/17 17:54 - Exam General: Alert, Oriented Extremities: Normal Inspection Skin: Warm, Dry, Intact Wound/Incisions: Healing Well, Dressing Dry and Intact Neurological: No New Focal Deficit - Problem List Review Problem List Initiated/Reviewed/Updated: Yes - My Orders Last 24 Hours: My Active Orders 03/21/17 09:00 Bisacodyl [Dulcolax] 10 mg PO DAILY Sodium Chloride 0.9% [Saline Flush] 10 ml FLUSH DAILY - Plan Plan:: ASSESSMENT AND PLAN - Right hip fracture - secondary to fall. had a right hemiarthroplasty last night. Pain is controlled with oral pain medication. We will have her continue with PT/OT for strengthening. She plans to go home on DC.
--- NOTE | 2017-03-22 08:11 | PCM.PN ---
- General Info Date of Service: 03/22/17 Admission Dx/Problem (Free Text): Patient is status pod 2 of a right hip hemiarthorplasty. Doing well. Her pain is under control at this time. Functional Status: Reports: Pain Controlled, Tolerating Diet, Urinating - Patient Data Vitals - Most Recent: Last Vital Signs Temp 36.6 C 03/22/17 07:34 Pulse 60 03/22/17 07:34 Resp 16 03/22/17 07:34 BP 132/58 L 03/22/17 07:34 Pulse Ox 96 03/22/17 07:34 Weight - Most Recent: 144 lb I&O - Last 24 Hours: Intake & Output 03/21/17 03/22/17 03/22/17 22:59 06:59 14:59 Intake Total 1162 1328 Output Total 775 1025 Balance 387 303 Lab Results Last 24 Hours: Laboratory Results - last 24 hr 03/22/17 03/22/17 Range/Units 06:04 06:04 WBC 7.8 (4.5-11.0) K/uL RBC 2.97 L (3.30-5.50) M/uL Hgb 9.1 L (12.0-15.0) g/dL Hct 29.0 L (36.0-48.0) % MCV 98 (80-98) fL MCH 31 (27-31) pg MCHC 31 L (32-36) % Plt Count 173 (150-400) K/uL Sodium 141 (140-148) mmol/L Potassium 3.9 (3.6-5.2) mmol/L Chloride 106 (100-108) mmol/L Carbon Dioxide 29 (21-32) mmol/L Anion Gap 6.0 (5.0-14.0) mmol/L BUN 9 D (7-18) mg/dL Creatinine 0.6 (0.6-1.0) mg/dL Est Cr Clr Drug Dosing 59.09 mL/min Estimated GFR (MDRD) > 60 (>60) Glucose 131 H (74-106) mg/dL Calcium 8.1 L (8.5-10.1) mg/dL Med Orders - Current: Current Medications Acetaminophen (Tylenol) 650 mg PO Q4H PRN PRN Reason: Pain (Mild 1-3)/fever Last Admin: 03/21/17 02:49 Dose: 650 mg Hydrocodone Bitart/Acetaminophen ([place] 325-5 Mg) 1 - 2 tab PO Q4H PRN PRN Reason: Pain (moderate 4-6) Last Admin: 03/22/17 03:49 Dose: 2 tab Al Hydroxide/Mg Hydroxide (Mag-Al Plus) 30 ml PO Q4H PRN PRN Reason: Constipation Aspirin (Halfprin) 81 mg PO DAILY [facility] Last Admin: 03/21/17 11:44 Dose: 81 mg Atorvastatin Calcium (Lipitor) 40 mg PO BEDTIME [facility] Last Admin: 03/21/17 21:21 Dose: 40 mg Bisacodyl (Dulcolax) 10 mg PO DAILY [facility] Last Admin: 03/21/17 08:55 Dose: Not Given Clopidogrel Bisulfate (Plavix) 75 mg PO DAILY [facility] Last Admin: 03/21/17 08:50 Dose: 75 mg Diazepam (Valium.) 5 mg PO Q4H PRN PRN Reason: Muscle Spasm Last Admin: 03/22/17 03:49 Dose: 5 mg Diphenhydramine HCl (Benadryl) 25 mg IVPUSH Q4H PRN PRN Reason: Itching Docusate Sodium (Colace) 100 mg PO BID [facility] Last Admin: 03/21/17 21:23 Dose: 100 mg Hydromorphone HCl (Dilaudid) 0.5 - 1 mg IVPUSH Q2H PRN PRN Reason: Pain (severe 7-10) Sodium Chloride (Normal Saline) 1,000 mls @ 50 mls/hr IV ASDIRECTED [facility] Last Admin: 03/22/17 03:39 Dose: 50 mls/hr Magnesium Hydroxide (Milk Of Magnesia) 30 ml PO BID [facility] Last Admin: 03/21/17 21:18 Dose: Not Given Metoprolol Tartrate (Lopressor) 25 mg PO BID [facility] Last Admin: 03/21/17 21:22 Dose: 25 mg Morphine Sulfate (Morphine) 2 mg IVPUSH Q2H PRN PRN Reason: Pain Last Admin: 03/21/17 21:20 Dose: 2 mg Naloxone HCl (Narcan) 0.1 mg IVPUSH ONETIME PRN PRN Reason: Oversedation Ondansetron HCl (Zofran Odt) 4 mg PO Q6H PRN PRN Reason: Nausea able to take PO Ondansetron HCl (Zofran) 4 mg IV Q6H PRN PRN Reason: Nausea/Vomiting Ondansetron HCl (Zofran) 8 mg IVPUSH Q4H PRN PRN Reason: Nausea/Vomiting Pantoprazole Sodium (Protonix) 40 mg PO DAILY@0730 [facility] Last Admin: 03/21/17 08:50 Dose: 40 mg Polyethylene Glycol (Miralax) 17 gm PO DAILY PRN PRN Reason: Constipation Senna (Senna) 8.6 mg PO BID [facility] Last Admin: 03/21/17 21:24 Dose: 8.6 mg Senna/Docusate Sodium (Senna Plus) 1 tab PO BID PRN PRN Reason: Constipation Sodium Chloride (Saline Flush) 10 ml FLUSH DAILY [facility] Last Admin: 03/21/17 08:55 Dose: Not Given Tramadol HCl (Ultram) 100 mg PO Q6H PRN PRN Reason: Pain Zolpidem Tartrate (Ambien) 5 mg PO BEDTIME PRN PRN Reason: Sleep Discontinued Medications Hydrocodone Bitart/Acetaminophen ([place] 325-5 Mg) 1 - 2 tab PO Q4H PRN PRN Reason: Pain (moderate 4-6) Aspirin (Halfprin) 81 mg PO DAILY [facility] Aspirin (Ecotrin) 325 mg PO DAILY [facility] Bupivacaine HCl/Epinephrine Bitart (Marcaine 0.5%/Epinephrine 1:200,000) Confirm Administered Dose 50 ml .ROUTE .STK-MED ONE Stop: 03/20/17 14:51 Last Admin: 03/20/17 17:47 Dose: 30 ml Ephedrine Sulfate (Ephedrine Sulfate) Confirm Administered Dose 50 mg .ROUTE .STK-MED ONE Stop: 03/20/17 17:21 Fentanyl (Sublimaze) Confirm Administered Dose 100 mcg .ROUTE .STK-MED ONE Stop: 03/20/17 16:51 Gentamicin Sulfate (Gentamicin) Confirm Administered Dose 240 mg .ROUTE .STK- MED ONE Stop: 03/20/17 14:51 Last Admin: 12 17:47 Dose: 240 mg Sodium Chloride (Normal Saline) 1,000 mls @ 250 mls/hr IV ASDIRECTED [facility] Last Admin: 03/20/17 13:20 Dose: 250 mls/hr Tranexamic Acid 460 mg/ Sodium (Chloride) 54.6 mls @ 218.4 mls/hr IV Q2H [facility] Stop: 03/20/17 18:14 Last Admin: 03/20/17 18:09 Dose: 218.4 mls/hr Clindamycin Phosphate 600 mg/ (Sodium Chloride) 54 mls @ 108 mls/hr IV ONETIME ONE Stop: 03/20/17 17:04 Last Admin: 03/20/17 17:35 Dose: 108 mls/hr Sodium Chloride (Normal Saline) 1,000 mls @ 125 mls/hr IV ASDIRECTED [facility] Last Admin: 03/21/17 03:48 Dose: 125 mls/hr Lactated Ringer's (Ringers, Lactated) Confirm Administered Dose 1,000 mls @ as directed .ROUTE .STK-MED ONE Stop: 03/20/17 18:08 Clindamycin Phosphate 600 mg/ (Sodium Chloride) 54 mls @ 100 mls/hr IV Q6H [facility] Stop: 03/21/17 12:03 Last Admin: 03/21/17 11:44 Dose: 100 mls/hr Ketamine HCl (Ketalar) 23 mg IV ASDIRECTED [facility] Stop: 03/20/17 18:00 Midazolam HCl (Versed 1 Mg/Ml) Confirm Administered Dose 2 mg .ROUTE .STK-MED ONE Stop: 03/20/17 16:52 Oxycodone HCl (Oxycodone) 10 mg PO Q4H PRN PRN Reason: Pain Stop: 03/21/17 18:26 Last Admin: 03/21/17 18:18 Dose: 10 mg Oxycodone/Acetaminophen (Percocet 325-5 Mg) 2 tab PO Q4H PRN PRN Reason: Pain Povidone Iodine (Betadine 10% Soln) Confirm Administered Dose 1 ml .ROUTE .STK- MED ONE Stop: 03/20/17 14:52 Last Admin: 03/20/17 17:48 Dose: 1 ml Propofol (Diprivan 20 Ml) Confirm Administered Dose 200 mg .ROUTE .STK-MED ONE Stop: 03/20/17 16:51 Vancomycin HCl (Vancomycin) Confirm Administered Dose 1 gm .ROUTE .STK-MED ONE Stop: 03/20/17 17:54 - Exam General: Alert, Oriented Skin: Warm, Dry, Intact Wound/Incisions: Healing Well, Dressing Dry and Intact Neurological: No New Focal Deficit Psy/Mental Status: Alert - Problem List Review Problem List Initiated/Reviewed/Updated: Yes - My Orders Last 24 Hours: My Active Orders 03/21/17 09:00 Bisacodyl [Dulcolax] 10 mg PO DAILY Sodium Chloride 0.9% [Saline Flush] 10 ml FLUSH DAILY - Plan Plan:: ASSESSMENT AND PLAN - Right hip fracture - secondary to fall. had a right hemiarthroplasty last night. Pain is controlled with oral pain medication. We will have her continue with PT/OT for strengthening. She plans to go home on DC. We recommended that she at least wear her sleeve for her prosthetic to reduce contractures.
[2017-03-22] MEDS: Magnesium Hydroxide 400 MG/5 ML Susp 30 ML Cup PO SCH ×3 (09:48→22:02)
[2017-03-22] MEDS: Aspirin 81 MG Tab.EC PO SCH (09:49)
[2017-03-22] MEDS: Bisacodyl 5 MG Tab PO SCH (09:49)
[2017-03-22] MEDS: Clopidogrel 75 MG Tab PO SCH (09:49)
[2017-03-22] MEDS: Pantoprazole 40 MG Tab.CR PO SCH (09:49)
[2017-03-22] MEDS: Docusate Sodium 100 MG Cap PO SCH ×2 (09:49→21:45)
[2017-03-22] MEDS: Metoprolol Tartrate 25 MG Tab PO SCH ×2 (09:49→21:46)
[2017-03-22] MEDS: Sennosides 8.6 MG Tab PO SCH ×2 (09:50→21:45)
[2017-03-22] MEDS: Sodium Chloride 0.9% 10 ML Syringe FLUSH SCH (09:50)
[2017-03-22] MEDS: traMADol 50 MG Tab PO PRN ×3 (09:59→21:55)
--- NOTE | 2017-03-22 15:14 | PCM.PN ---
- General Info Date of Service: 03/22/17 Functional Status: Reports: Pain Controlled, Tolerating Diet - Review of Systems Musculoskeletal: Reports: Leg Pain Systems Review Comment:: no acute events overnight. Patient still has moderate to moderately severe pain in the right hip, especially with transfers. In general pain has been fairly well-controlled. She is able to stand and pivot on her left leg. She has not yet tried to ambulate with her prosthesis. No fevers. Hemoglobin stable. - Patient Data Vitals - Most Recent: Last Vital Signs Temp 36.6 C 03/22/17 10:30 Pulse 75 03/22/17 10:30 Resp 17 03/22/17 10:30 BP 165/55 H 03/22/17 10:30 Pulse Ox 100 03/22/17 10:30 Weight - Most Recent: 65.317 kg I&O - Last 24 Hours: Intake & Output 03/22/17 03/22/17 03/22/17 06:59 14:59 22:59 Intake Total 1328 390 Output Total 1025 650 Balance 303 -260 Lab Results Last 24 Hours: Laboratory Results - last 24 hr 03/22/17 03/22/17 Range/Units 06:04 06:04 WBC 7.8 (4.5-11.0) K/uL RBC 2.97 L (3.30-5.50) M/uL Hgb 9.1 L (12.0-15.0) g/dL Hct 29.0 L (36.0-48.0) % MCV 98 (80-98) fL MCH 31 (27-31) pg MCHC 31 L (32-36) % Plt Count 173 (150-400) K/uL Sodium 141 (140-148) mmol/L Potassium 3.9 (3.6-5.2) mmol/L Chloride 106 (100-108) mmol/L Carbon Dioxide 29 (21-32) mmol/L Anion Gap 6.0 (5.0-14.0) mmol/L BUN 9 D (7-18) mg/dL Creatinine 0.6 (0.6-1.0) mg/dL Est Cr Clr Drug Dosing 59.09 mL/min Estimated GFR (MDRD) > 60 (>60) Glucose 131 H (74-106) mg/dL Calcium 8.1 L (8.5-10.1) mg/dL Med Orders - Current: Current Medications Acetaminophen (Tylenol) 650 mg PO Q4H PRN PRN Reason: Pain (Mild 1-3)/fever Last Admin: 03/21/17 02:49 Dose: 650 mg Hydrocodone Bitart/Acetaminophen ([place] 325-5 Mg) 1 - 2 tab PO Q4H PRN PRN Reason: Pain (moderate 4-6) Last Admin: 03/22/17 03:49 Dose: 2 tab Al Hydroxide/Mg Hydroxide (Mag-Al Plus) 30 ml PO Q4H PRN PRN Reason: Constipation Aspirin (Halfprin) 81 mg PO DAILY [facility] Last Admin: 03/22/17 09:49 Dose: 81 mg Atorvastatin Calcium (Lipitor) 40 mg PO BEDTIME [facility] Last Admin: 03/21/17 21:21 Dose: 40 mg Bisacodyl (Dulcolax) 10 mg PO DAILY [facility] Last Admin: 03/22/17 09:49 Dose: 10 mg Clopidogrel Bisulfate (Plavix) 75 mg PO DAILY [facility] Last Admin: 03/22/17 09:49 Dose: 75 mg Diazepam (Valium.) 5 mg PO Q4H PRN PRN Reason: Muscle Spasm Last Admin: 03/22/17 09:59 Dose: 5 mg Diphenhydramine HCl (Benadryl) 25 mg IVPUSH Q4H PRN PRN Reason: Itching Docusate Sodium (Colace) 100 mg PO BID [facility] Last Admin: 03/22/17 09:49 Dose: 100 mg Hydromorphone HCl (Dilaudid) 0.5 - 1 mg IVPUSH Q2H PRN PRN Reason: Pain (severe 7-10) Magnesium Hydroxide (Milk Of Magnesia) 30 ml PO BID [facility] Last Admin: 03/22/17 09:48 Dose: 30 ml Metoprolol Tartrate (Lopressor) 25 mg PO BID [facility] Last Admin: 03/22/17 09:49 Dose: 25 mg Morphine Sulfate (Morphine) 2 mg IVPUSH Q2H PRN PRN Reason: Pain Last Admin: 03/21/17 21:20 Dose: 2 mg Naloxone HCl (Narcan) 0.1 mg IVPUSH ONETIME PRN PRN Reason: Oversedation Ondansetron HCl (Zofran Odt) 4 mg PO Q6H PRN PRN Reason: Nausea able to take PO Ondansetron HCl (Zofran) 4 mg IV Q6H PRN PRN Reason: Nausea/Vomiting Ondansetron HCl (Zofran) 8 mg IVPUSH Q4H PRN PRN Reason: Nausea/Vomiting Pantoprazole Sodium (Protonix) 40 mg PO DAILY@0730 [facility] Last Admin: 03/22/17 09:49 Dose: 40 mg Polyethylene Glycol (Miralax) 17 gm PO DAILY PRN PRN Reason: Constipation Senna (Senna) 8.6 mg PO BID [facility] Last Admin: 03/22/17 09:50 Dose: 8.6 mg Senna/Docusate Sodium (Senna Plus) 1 tab PO BID PRN PRN Reason: Constipation Sodium Chloride (Saline Flush) 10 ml FLUSH DAILY [facility] Last Admin: 03/22/17 09:50 Dose: Not Given Tramadol HCl (Ultram) 100 mg PO Q6H PRN PRN Reason: Pain Last Admin: 03/22/17 09:59 Dose: 100 mg Zolpidem Tartrate (Ambien) 5 mg PO BEDTIME PRN PRN Reason: Sleep Discontinued Medications Hydrocodone Bitart/Acetaminophen ([place] 325-5 Mg) 1 - 2 tab PO Q4H PRN PRN Reason: Pain (moderate 4-6) Aspirin (Halfprin) 81 mg PO DAILY [facility] Aspirin (Ecotrin) 325 mg PO DAILY [facility] Bupivacaine HCl/Epinephrine Bitart (Marcaine 0.5%/Epinephrine 1:200,000) Confirm Administered Dose 50 ml .ROUTE .STK-MED ONE Stop: 03/20/17 14:51 Last Admin: 03/20/17 17:47 Dose: 30 ml Ephedrine Sulfate (Ephedrine Sulfate) Confirm Administered Dose 50 mg .ROUTE .STK-MED ONE Stop: 03/20/17 17:21 Fentanyl (Sublimaze) Confirm Administered Dose 100 mcg .ROUTE .STK-MED ONE Stop: 03/20/17 16:51 Gentamicin Sulfate (Gentamicin) Confirm Administered Dose 240 mg .ROUTE .STK- MED ONE Stop: 03/20/17 14:51 Last Admin: 03/20/17 17:47 Dose: 240 mg Sodium Chloride (Normal Saline) 1,000 mls @ 250 mls/hr IV ASDIRECTED [facility] Last Admin: 03/20/17 13:20 Dose: 250 mls/hr Tranexamic Acid 460 mg/ Sodium (Chloride) 54.6 mls @ 218.4 mls/hr IV Q2H [facility] Stop: 03/20/17 18:14 Last Admin: 03/20/17 18:09 Dose: 218.4 mls/hr Clindamycin Phosphate 600 mg/ (Sodium Chloride) 54 mls @ 108 mls/hr IV ONETIME ONE Stop: 03/20/17 17:04 Last Admin: 03/20/17 17:35 Dose: 108 mls/hr Sodium Chloride (Normal Saline) 1,000 mls @ 125 mls/hr IV ASDIRECTED [facility] Last Admin: 03/21/17 03:48 Dose: 125 mls/hr Lactated Ringer's (Ringers, Lactated) Confirm Administered Dose 1,000 mls @ as directed .ROUTE .STK-MED ONE Stop: 03/20/17 18:08 Clindamycin Phosphate 600 mg/ (Sodium Chloride) 54 mls @ 100 mls/hr IV Q6H [facility] Stop: 03/21/17 12:03 Last Admin: 03/21/17 11:44 Dose: 100 mls/hr Sodium Chloride (Normal Saline) 1,000 mls @ 50 mls/hr IV ASDIRECTED [facility] Last Admin: 03/22/17 09:34 Dose: 50 mls/hr Ketamine HCl (Ketalar) 23 mg IV ASDIRECTED [facility] Stop: 03/20/17 18:00 Midazolam HCl (Versed 1 Mg/Ml) Confirm Administered Dose 2 mg .ROUTE .STK-MED ONE Stop: 03/20/17 16:52 Oxycodone HCl (Oxycodone) 10 mg PO Q4H PRN PRN Reason: Pain Stop: 03/21/17 18:26 Last Admin: 03/21/17 18:18 Dose: 10 mg Oxycodone/Acetaminophen (Percocet 325-5 Mg) 2 tab PO Q4H PRN PRN Reason: Pain Povidone Iodine (Betadine 10% Soln) Confirm Administered Dose 1 ml .ROUTE .STK- MED ONE Stop: 03/20/17 14:52 Last Admin: 03/20/17 17:48 Dose: 1 ml Propofol (Diprivan 20 Ml) Confirm Administered Dose 200 mg .ROUTE .STK-MED ONE Stop: 03/20/17 16:51 Vancomycin HCl (Vancomycin) Confirm Administered Dose 1 gm .ROUTE .[facility] ONE Stop: 03/20/17 17:54 - Exam Quality Assessment: No: Supplemental Oxygen General: Alert, Oriented, Cooperative, No Acute Distress Neck: Supple Lungs: Normal Respiratory Effort Cardiovascular: Regular Rhythm GI/Abdominal Exam: No Distention Extremities: No Pedal Edema (on the left), Other (Right BKA) Wound/Incisions: Dressing Dry and Intact Psy/Mental Status: Alert, Normal Affect - Problem List & Annotations (1) Fracture of right hip SNOMED Code(s): 795432897 Code(s): S72.001A - FRACTURE OF UNSP PART OF NECK OF RIGHT FEMUR, INIT Status: Acute Current Visit: Yes Qualifiers: Encounter type: initial encounter Fracture type: closed Qualified Code(s) : S72.001A - Fracture of unspecified part of neck of right femur, initial encounter for closed fracture (2) Weight loss SNOMED Code(s): 52808131 Code(s): R63.4 - ABNORMAL WEIGHT LOSS Status: Acute Current Visit: Yes (3) Coronary artery disease SNOMED Code(s): 52289316 Code(s): I25.10 - ATHSCL HEART DISEASE OF [place] CORONARY ARTERY W/O ANG PCTRS Status: Chronic Current Visit: Yes Qualifiers: Coronary Disease-Associated Artery/Lesion type: [place] artery [place] vs. transplanted heart: [place] heart Associated angina: without angina Qualified Code(s): I25.10 - Atherosclerotic heart disease of [place] coronary artery without angina pectoris (4) Peripheral vascular disease SNOMED Code(s): 449665670 Code(s): I73.9 - PERIPHERAL VASCULAR DISEASE, UNSPECIFIED Status: Chronic Current Visit: Yes (5) Amputation of right lower extremity below knee SNOMED Code(s): 245391554 Code(s): Z89.511 - ACQUIRED ABSENCE OF RIGHT LEG BELOW KNEE Status: Chronic Current Visit: Yes - Problem List Review Problem List Initiated/Reviewed/Updated: Yes - My Orders Last 24 Hours: My Active Orders 03/22/17 15:10 Convert IV to Saline Lock [OM.PC] Routine 03/23/17 05:00 BASIC METABOLIC PANEL,BMP [CHEM] Timed HGB [HEMOGLOBIN] [HEME] Timed - Plan Plan:: ASSESSMENT AND PLAN - Right hip fracture - secondary to fall. had a right hemiarthroplasty 03/20. Pain is moderately to moderately severe at this time but otherwise she is stable and improving. Able to pivot on her left leg to get from bed to chair. -postop cares as indicated per orthopedic team -Pain control -Physical therapy Coronary artery disease - vitals stable since surgery, tolerating medical management. -Continue medical management including dual antiplatelet therapy and beta rodney Peripheral vascular disease - Previous large vessel stenting in the lower extremities. Stable at this time. 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 -Dietary consult -outpatient follow-up with Dr. Gonzalez/Rozina Donohue -Dietary supplements Maintenance issues - - DVT prophylaxis - mechanical on left leg - GI prophylaxis - PPI - Nutrition - bariatric diet - [place] catheter - removed Disposition - anticipate discharge home after the hospital stay Familia Ibarra M.D.
[2017-03-22] MEDS: atorvaSTATin 20 MG Tab PO SCH (21:45)
[2017-03-23] MEDS: Acetaminophen/HYDROcodone 325-5 MG Tab PO PRN ×3 (02:33→20:37)
[2017-03-23] MEDS: traMADol 50 MG Tab PO PRN (04:56)
[2017-03-23] MEDS: Diazepam 5 MG Tab PO PRN ×3 (04:56→20:37)
[2017-03-23] MEDS: Pantoprazole 40 MG Tab.CR PO SCH (07:12)
[2017-03-23] MEDS: Docusate Sodium 100 MG Cap PO SCH ×2 (09:36→20:28)
[2017-03-23] MEDS: Bisacodyl 5 MG Tab PO SCH (09:36)
[2017-03-23] MEDS: Sodium Chloride 0.9% 10 ML Syringe FLUSH SCH (09:36)
[2017-03-23] MEDS: Metoprolol Tartrate 25 MG Tab PO SCH ×2 (09:37→20:30)
[2017-03-23] MEDS: Aspirin 81 MG Tab.EC PO SCH (09:37)
[2017-03-23] MEDS: Sennosides 8.6 MG Tab PO SCH ×2 (09:37→20:31)
[2017-03-23] MEDS: Magnesium Hydroxide 400 MG/5 ML Susp 30 ML Cup PO SCH ×2 (09:37→20:31)
[2017-03-23] MEDS: Clopidogrel 75 MG Tab PO SCH (09:37)
[2017-03-23] MEDS ORDERED: Potassium Chloride 20 MEQ Tab.ER PO ONE (10:30)
--- NOTE | 2017-03-23 13:47 | PCM.PN ---
- General Info Date of Service: 03/23/17 Functional Status: Reports: Pain Controlled, Tolerating Diet - Review of Systems Musculoskeletal: Reports: Leg Pain Systems Review Comment:: No acute events overnight. She is a little bit sleepy today and falls asleep during questions. Pain control has improved but she continues to have moderate right hip pain. She was able to put on her right leg prosthesis and stand for approximately 1 minute with physical therapy today. Appetite has been good. Vital signs have all been stable. - Patient Data Vitals - Most Recent: Last Vital Signs Temp 35.4 C 03/23/17 11:12 Pulse 66 03/23/17 11:12 Resp 18 03/23/17 11:12 BP 102/57 L 03/23/17 11:12 Pulse Ox 99 03/23/17 11:12 Weight - Most Recent: 65.317 kg I&O - Last 24 Hours: Intake & Output 03/22/17 03/23/17 03/23/17 22:59 06:59 14:59 Intake Total 503 240 350 Output Total 300 Balance 503 240 50 Lab Results Last 24 Hours: Laboratory Results - last 24 hr 03/23/17 03/23/17 Range/Units 04:59 04:59 Hgb 8.3 L (12.0-15.0) g/dL Sodium 137 L (140-148) mmol/L Potassium 3.4 L (3.6-5.2) mmol/L Chloride 103 (100-108) mmol/L Carbon Dioxide 30 (21-32) mmol/L Anion Gap 7.4 (5.0-14.0) mmol/L BUN 11 (7-18) mg/dL Creatinine 0.6 (0.6-1.0) mg/dL Est Cr Clr Drug Dosing 59.09 mL/min Estimated GFR (MDRD) > 60 (>60) Glucose 113 H (74-106) mg/dL Calcium 8.1 L (8.5-10.1) mg/dL Med Orders - Current: Current Medications Acetaminophen (Tylenol) 650 mg PO Q4H PRN PRN Reason: Pain (Mild 1-3)/fever Last Admin: 03/21/17 02:49 Dose: 650 mg Hydrocodone Bitart/Acetaminophen ([place] 325-5 Mg) 1 - 2 tab PO Q4H PRN PRN Reason: Pain (moderate 4-6) Last Admin: 03/23/17 07:12 Dose: 2 tab Al Hydroxide/Mg Hydroxide (Mag-Al Plus) 30 ml PO Q4H PRN PRN Reason: Constipation Aspirin (Halfprin) 81 mg PO DAILY [facility] Last Admin: 03/23/17 09:37 Dose: 81 mg Atorvastatin Calcium (Lipitor) 40 mg PO BEDTIME [facility] Last Admin: 03/22/17 21:45 Dose: 40 mg Bisacodyl (Dulcolax) 10 mg PO DAILY [facility] Last Admin: 03/23/17 09:36 Dose: 10 mg Clopidogrel Bisulfate (Plavix) 75 mg PO DAILY [facility] Last Admin: 03/23/17 09:37 Dose: 75 mg Diazepam (Valium.) 5 mg PO Q4H PRN PRN Reason: Muscle Spasm Last Admin: 03/23/17 09:37 Dose: 5 mg Diphenhydramine HCl (Benadryl) 25 mg IVPUSH Q4H PRN PRN Reason: Itching Docusate Sodium (Colace) 100 mg PO BID [facility] Last Admin: 03/23/17 09:36 Dose: 100 mg Hydromorphone HCl (Dilaudid) 0.5 - 1 mg IVPUSH Q2H PRN PRN Reason: Pain (severe 7-10) Magnesium Hydroxide (Milk Of Magnesia) 30 ml PO BID [facility] Last Admin: 03/23/17 09:37 Dose: Not Given Metoprolol Tartrate (Lopressor) 25 mg PO BID [facility] Last Admin: 03/23/17 09:37 Dose: 25 mg Morphine Sulfate (Morphine) 2 mg IVPUSH Q2H PRN PRN Reason: Pain Last Admin: 03/21/17 21:20 Dose: 2 mg Naloxone HCl (Narcan) 0.1 mg IVPUSH ONETIME PRN PRN Reason: Oversedation Ondansetron HCl (Zofran Odt) 4 mg PO Q6H PRN PRN Reason: Nausea able to take PO Ondansetron HCl (Zofran) 4 mg IV Q6H PRN PRN Reason: Nausea/Vomiting Ondansetron HCl (Zofran) 8 mg IVPUSH Q4H PRN PRN Reason: Nausea/Vomiting Pantoprazole Sodium (Protonix) 40 mg PO DAILY@0730 [facility] Last Admin: 03/23/17 07:12 Dose: 40 mg Polyethylene Glycol (Miralax) 17 gm PO DAILY PRN PRN Reason: Constipation Senna (Senna) 8.6 mg PO BID [facility] Last Admin: 03/23/17 09:37 Dose: Not Given Senna/Docusate Sodium (Senna Plus) 1 tab PO BID PRN PRN Reason: Constipation Sodium Chloride (Saline Flush) 10 ml FLUSH DAILY [facility] Last Admin: 03/23/17 09:36 Dose: 10 ml Tramadol HCl (Ultram) 100 mg PO Q6H PRN PRN Reason: Pain Last Admin: 03/23/17 04:56 Dose: 100 mg Zolpidem Tartrate (Ambien) 5 mg PO BEDTIME PRN PRN Reason: Sleep Discontinued Medications Hydrocodone Bitart/Acetaminophen ([place] 325-5 Mg) 1 - 2 tab PO Q4H PRN PRN Reason: Pain (moderate 4-6) Aspirin (Halfprin) 81 mg PO DAILY [facility] Aspirin (Ecotrin) 325 mg PO DAILY [facility] Bupivacaine HCl/Epinephrine Bitart ([place] 0.5%/Epinephrine 1:200,000) Confirm Administered Dose 50 ml .ROUTE .STK-MED ONE Stop: 03/20/17 14:51 Last Admin: 03/20/17 17:47 Dose: 30 ml Ephedrine Sulfate (Ephedrine Sulfate) Confirm Administered Dose 50 mg .ROUTE .STK-MED ONE Stop: 03/20/17 17:21 Fentanyl (Sublimaze) Confirm Administered Dose 100 mcg .ROUTE .STK-MED ONE Stop: 03/20/17 16:51 Gentamicin Sulfate (Gentamicin) Confirm Administered Dose 240 mg .ROUTE .STK- MED ONE Stop: 03/20/17 14:51 Last Admin: 03/20/17 17:47 Dose: 240 mg Sodium Chloride (Normal Saline) 1,000 mls @ 250 mls/hr IV ASDIRECTED [facility] Last Admin: 03/20/17 13:20 Dose: 250 mls/hr Tranexamic Acid 460 mg/ Sodium (Chloride) 54.6 mls @ 218.4 mls/hr IV Q2H [facility] Stop: 03/20/17 18:14 Last Admin: 03/20/17 18:09 Dose: 218.4 mls/hr Clindamycin Phosphate 600 mg/ (Sodium Chloride) 54 mls @ 108 mls/hr IV ONETIME ONE Stop: 03/20/17 17:04 Last Admin: 03/20/17 17:35 Dose: 108 mls/hr Sodium Chloride (Normal Saline) 1,000 mls @ 125 mls/hr IV ASDIRECTED [facility] Last Admin: 03/21/17 03:48 Dose: 125 mls/hr Lactated Ringer's (Ringers, Lactated) Confirm Administered Dose 1,000 mls @ as directed .ROUTE .STK-MED ONE Stop: 03/20/17 18:08 Clindamycin Phosphate 600 mg/ (Sodium Chloride) 54 mls @ 100 mls/hr IV Q6H [facility] Stop: 03/21/17 12:03 Last Admin: 03/21/17 11:44 Dose: 100 mls/hr Sodium Chloride (Normal Saline) 1,000 mls @ 50 mls/hr IV ASDIRECTED [facility] Last Admin: 03/22/17 09:34 Dose: 50 mls/hr Ketamine HCl (Ketalar) 23 mg IV ASDIRECTED [facility] Stop: 03/20/17 18:00 Midazolam HCl (Versed 1 Mg/Ml) Confirm Administered Dose 2 mg .ROUTE .STK-MED ONE Stop: 03/20/17 16:52 Oxycodone HCl (Oxycodone) 10 mg PO Q4H PRN PRN Reason: Pain Stop: 03/21/17 18:26 Last Admin: 03/21/17 18:18 Dose: 10 mg Oxycodone/Acetaminophen (Percocet 325-5 Mg) 2 tab PO Q4H PRN PRN Reason: Pain Potassium Chloride (Klor-Con M20) 40 meq PO ONETIME ONE Stop: 03/23/17 10:31 Last Admin: 03/23/17 10:32 Dose: 40 meq Povidone Iodine (Betadine 10% Soln) Confirm Administered Dose 1 ml .ROUTE .STK- MED ONE Stop: 03/20/17 14:52 Last Admin: 03/20/17 17:48 Dose: 1 ml Propofol (Diprivan 20 Ml) Confirm Administered Dose 200 mg .ROUTE .STK-MED ONE Stop: 03/20/17 16:51 Vancomycin HCl (Vancomycin) Confirm Administered Dose 1 gm .ROUTE .STK-MED ONE Stop: 03/20/17 17:54 - Exam Quality Assessment: No: Supplemental Oxygen General: Alert, Oriented, Cooperative, No Acute Distress, Sedated HEENT: Pupils Equal Lungs: Normal Respiratory Effort Cardiovascular: Regular Rate, Regular Rhythm GI/Abdominal Exam: Soft, No Distention Extremities: No Pedal Edema (on the right) Skin: Warm, Dry Wound/Incisions: Dressing Dry and Intact, No Drainage Psy/Mental Status: Alert, Normal Affect - Problem List & Annotations (1) Fracture of right hip SNOMED Code(s): 558342437 Code(s): S72.001A - FRACTURE OF UNSP PART OF NECK OF RIGHT FEMUR, INIT Status: Acute Current Visit: Yes Qualifiers: Encounter type: initial encounter Fracture type: closed Qualified Code(s) : S72.001A - Fracture of unspecified part of neck of right femur, initial encounter for closed fracture (2) Weight loss SNOMED Code(s): 08211538 Code(s): R63.4 - ABNORMAL WEIGHT LOSS Status: Acute Current Visit: Yes (3) Coronary artery disease SNOMED Code(s): 07364540 Code(s): I25.10 - ATHSCL HEART DISEASE OF [place] CORONARY ARTERY W/O ANG PCTRS Status: Chronic Current Visit: Yes Qualifiers: Coronary Disease-Associated Artery/Lesion type: [place] artery [place] vs. transplanted heart: [place] heart Associated angina: without angina Qualified Code(s): I25.10 - Atherosclerotic heart disease of [place] coronary artery without angina pectoris (4) Peripheral vascular disease SNOMED Code(s): 166684896 Code(s): I73.9 - PERIPHERAL VASCULAR DISEASE, UNSPECIFIED Status: Chronic Current Visit: Yes (5) Amputation of right lower extremity below knee SNOMED Code(s): 278541730 Code(s): Z89.511 - ACQUIRED ABSENCE OF RIGHT LEG BELOW KNEE Status: Chronic Current Visit: Yes - Problem List Review Problem List Initiated/Reviewed/Updated: Yes - My Orders Last 24 Hours: My Active Orders 03/22/17 15:10 Convert IV to Saline Lock [OM.PC] Routine 03/22/17 Dinner Bariatric Diet [DIET] 03/24/17 05:00 BASIC METABOLIC PANEL,BMP [CHEM] Timed HGB [HEMOGLOBIN] [HEME] Timed - Plan Plan:: ASSESSMENT AND PLAN - Right hip fracture - secondary to fall. had a right hemiarthroplasty 03/20. Pain slowly improving. She did have her prosthesis on for a short while today. Pain seems to be the limiting factor to her improving her mobility. -postop cares as indicated per orthopedic team -Pain control -Physical therapy Hypokalemia - mild and will be supplemented today. Coronary artery disease - vitals stable since surgery. -Continue medical management including dual antiplatelet therapy and beta rodney Peripheral vascular disease - Previous large vessel stenting in the lower extremities. Stable at this time. 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 -Dietary consult -outpatient follow-up with Dr. Gonzalez/Rozina Donohue -Dietary supplements Maintenance issues - - DVT prophylaxis - mechanical on left leg and dual antiplatelet therapy - GI prophylaxis - PPI - Nutrition - bariatric diet - Neves catheter - removed Disposition - anticipate discharge home after the hospital stay. Patient needs additional physical therapy and safe discharge plan prior to her leaving the hospital. At this point she probably is ready for detention placement if she were excepting but she declines at this time. No detention beds would be available over the holiday weekend anyway. Hopefully with a day or 2 more physical therapy she will be able to go home. Familai Ibarra M.D.
[2017-03-23] MEDS: atorvaSTATin 20 MG Tab PO SCH (20:28)
[2017-03-24] MEDS: Acetaminophen/HYDROcodone 325-5 MG Tab PO PRN ×4 (04:35→23:54)
[2017-03-24] MEDS: Diazepam 5 MG Tab PO PRN ×4 (06:58→23:54)
[2017-03-24] MEDS: traMADol 50 MG Tab PO PRN (06:58)
[2017-03-24] MEDS: Pantoprazole 40 MG Tab.CR PO SCH (07:51)
[2017-03-24] MEDS: Aspirin 81 MG Tab.EC PO SCH (09:04)
[2017-03-24] MEDS: Bisacodyl 5 MG Tab PO SCH (09:04)
[2017-03-24] MEDS: Docusate Sodium 100 MG Cap PO SCH ×2 (09:04→21:46)
[2017-03-24] MEDS: Metoprolol Tartrate 25 MG Tab PO SCH ×2 (09:04→21:46)
[2017-03-24] MEDS: Clopidogrel 75 MG Tab PO SCH (09:05)
[2017-03-24] MEDS: Sodium Chloride 0.9% 10 ML Syringe FLUSH SCH (09:05)
[2017-03-24] MEDS: Magnesium Hydroxide 400 MG/5 ML Susp 30 ML Cup PO SCH ×2 (09:05→21:47)
[2017-03-24] MEDS: Sennosides 8.6 MG Tab PO SCH ×2 (09:06→21:46)
--- NOTE | 2017-03-24 13:15 | PCM.PN ---
- General Info Date of Service: 03/24/17 Functional Status: Reports: Pain Controlled - Review of Systems General: Reports: Weakness Musculoskeletal: Reports: Leg Pain Systems Review Comment:: no acute events overnight. Patient is more alert and interactive today. She was able to get her right leg prosthesis on this morning and stand for a short while. She is planning to try to walker and see if she can take some steps in a little while. She has not had any fevers. Vital signs have been stable. Hemoglobin is stable in the mid 8 range. There is no evidence for bleeding. She continues to require significant assistance getting into and out of bed as well as putting on her prosthesis and is not safe for outpatient management just yet. - Patient Data Vitals - Most Recent: Last Vital Signs Temp 36.3 C 03/24/17 11:28 Pulse 58 L 03/24/17 11:28 Resp 16 03/24/17 11:28 BP 118/50 L 03/24/17 11:28 Pulse Ox 97 03/24/17 11:28 Weight - Most Recent: 65.317 kg I&O - Last 24 Hours: Intake & Output 03/23/17 03/24/17 03/24/17 22:59 06:59 14:59 Intake Total 240 600 Output Total 350 Balance 240 250 Lab Results Last 24 Hours: Laboratory Results - last 24 hr 03/24/17 03/24/17 Range/Units 04:58 04:58 Hgb 8.3 L (12.0-15.0) g/dL Sodium 141 (140-148) mmol/L Potassium 4.1 (3.6-5.2) mmol/L Chloride 105 (100-108) mmol/L Carbon Dioxide 31 (21-32) mmol/L Anion Gap 4.6 L (5.0-14.0) mmol/L BUN 10 (7-18) mg/dL Creatinine 0.5 L (0.6-1.0) mg/dL Est Cr Clr Drug Dosing 70.90 mL/min Estimated GFR (MDRD) > 60 (>60) Glucose 104 (74-106) mg/dL Calcium 8.3 L (8.5-10.1) mg/dL Med Orders - Current: Current Medications Acetaminophen (Tylenol) 650 mg PO Q4H PRN PRN Reason: Pain (Mild 1-3)/fever Last Admin: 03/21/17 02:49 Dose: 650 mg Hydrocodone Bitart/Acetaminophen ([place] 325-5 Mg) 1 - 2 tab PO Q4H PRN PRN Reason: Pain (moderate 4-6) Last Admin: 03/24/17 12:17 Dose: 2 tab Al Hydroxide/Mg Hydroxide (Mag-Al Plus) 30 ml PO Q4H PRN PRN Reason: Constipation Aspirin (Halfprin) 81 mg PO DAILY [facility] Last Admin: 03/24/17 09:04 Dose: 81 mg Atorvastatin Calcium (Lipitor) 40 mg PO BEDTIME [facility] Last Admin: 03/23/17 20:28 Dose: 40 mg Bisacodyl (Dulcolax) 10 mg PO DAILY [facility] Last Admin: 03/24/17 09:04 Dose: 10 mg Clopidogrel Bisulfate (Plavix) 75 mg PO DAILY [facility] Last Admin: 03/24/17 09:05 Dose: 75 mg Diazepam (Valium.) 5 mg PO Q4H PRN PRN Reason: Muscle Spasm Last Admin: 03/24/17 12:26 Dose: 5 mg Diphenhydramine HCl (Benadryl) 25 mg IVPUSH Q4H PRN PRN Reason: Itching Docusate Sodium (Colace) 100 mg PO BID [facility] Last Admin: 03/24/17 09:04 Dose: Not Given Magnesium Hydroxide (Milk Of Magnesia) 30 ml PO BID [facility] Last Admin: 03/24/17 09:05 Dose: Not Given Metoprolol Tartrate (Lopressor) 25 mg PO BID [facility] Last Admin: 03/24/17 09:04 Dose: 25 mg Morphine Sulfate (Morphine) 2 mg IVPUSH Q2H PRN PRN Reason: Pain Last Admin: 03/21/17 21:20 Dose: 2 mg Naloxone HCl (Narcan) 0.1 mg IVPUSH ONETIME PRN PRN Reason: Oversedation Ondansetron HCl (Zofran Odt) 4 mg PO Q6H PRN PRN Reason: Nausea able to take PO Ondansetron HCl (Zofran) 4 mg IV Q6H PRN PRN Reason: Nausea/Vomiting Pantoprazole Sodium (Protonix) 40 mg PO DAILY@0730 [facility] Last Admin: 03/24/17 07:51 Dose: 40 mg Polyethylene Glycol (Miralax) 17 gm PO DAILY PRN PRN Reason: Constipation Senna (Senna) 8.6 mg PO BID [facility] Last Admin: 03/24/17 09:06 Dose: 8.6 mg Senna/Docusate Sodium (Senna Plus) 1 tab PO BID PRN PRN Reason: Constipation Sodium Chloride (Saline Flush) 10 ml FLUSH DAILY [facility] Last Admin: 03/24/17 09:05 Dose: 10 ml Tramadol HCl (Ultram) 100 mg PO Q6H PRN PRN Reason: Pain Last Admin: 03/24/17 06:58 Dose: 100 mg Zolpidem Tartrate (Ambien) 5 mg PO BEDTIME PRN PRN Reason: Sleep Discontinued Medications Hydrocodone Bitart/Acetaminophen ([place] 325-5 Mg) 1 - 2 tab PO Q4H PRN PRN Reason: Pain (moderate 4-6) Aspirin (Halfprin) 81 mg PO DAILY [facility] Aspirin (Ecotrin) 325 mg PO DAILY [facility] Bupivacaine HCl/Epinephrine Bitart (Marcaine 0.5%/Epinephrine 1:200,000) Confirm Administered Dose 50 ml .ROUTE .STK-MED ONE Stop: 03/20/17 14:51 Last Admin: 03/20/17 17:47 Dose: 30 ml Ephedrine Sulfate (Ephedrine Sulfate) Confirm Administered Dose 50 mg .ROUTE .STK-MED ONE Stop: 03/20/17 17:21 Fentanyl (Sublimaze) Confirm Administered Dose 100 mcg .ROUTE .STK-MED ONE Stop: 03/20/17 16:51 Gentamicin Sulfate (Gentamicin) Confirm Administered Dose 240 mg .ROUTE .STK- MED ONE Stop: 03/20/17 14:51 Last Admin: 03/20/17 17:47 Dose: 240 mg Hydromorphone HCl (Dilaudid) 0.5 - 1 mg IVPUSH Q2H PRN PRN Reason: Pain (severe 7-10) Sodium Chloride (Normal Saline) 1,000 mls @ 250 mls/hr IV ASDIRECTED [facility] Last Admin: 03/20/17 13:20 Dose: 250 mls/hr Tranexamic Acid 460 mg/ Sodium (Chloride) 54.6 mls @ 218.4 mls/hr IV Q2H [facility] Stop: 03/20/17 18:14 Last Admin: 03/20/17 18:09 Dose: 218.4 mls/hr Clindamycin Phosphate 600 mg/ (Sodium Chloride) 54 mls @ 108 mls/hr IV ONETIME ONE Stop: 03/20/17 17:04 Last Admin: 03/20/17 17:35 Dose: 108 mls/hr Sodium Chloride (Normal Saline) 1,000 mls @ 125 mls/hr IV ASDIRECTED [facility] Last Admin: 03/21/17 03:48 Dose: 125 mls/hr Lactated Ringer's (Ringers, Lactated) Confirm Administered Dose 1,000 mls @ as directed .ROUTE .STK-MED ONE Stop: 03/20/17 18:08 Clindamycin Phosphate 600 mg/ (Sodium Chloride) 54 mls @ 100 mls/hr IV Q6H [facility] Stop: 03/21/17 12:03 Last Admin: 03/21/17 11:44 Dose: 100 mls/hr Sodium Chloride (Normal Saline) 1,000 mls @ 50 mls/hr IV ASDIRECTED [facility] Last Admin: 03/22/17 09:34 Dose: 50 mls/hr Ketamine HCl (Ketalar) 23 mg IV ASDIRECTED [facility] Stop: 03/20/17 18:00 Midazolam HCl (Versed 1 Mg/Ml) Confirm Administered Dose 2 mg .ROUTE .STK-MED ONE Stop: 03/20/17 16:52 Ondansetron HCl (Zofran) 8 mg IVPUSH Q4H PRN PRN Reason: Nausea/Vomiting Oxycodone HCl (Oxycodone) 10 mg PO Q4H PRN PRN Reason: Pain Stop: 03/21/17 18:26 Last Admin: 03/21/17 18:18 Dose: 10 mg Oxycodone/Acetaminophen (Percocet 325-5 Mg) 2 tab PO Q4H PRN PRN Reason: Pain Potassium Chloride (Klor-Con M20) 40 meq PO ONETIME ONE Stop: 03/23/17 10:31 Last Admin: 03/23/17 10:32 Dose: 40 meq Povidone Iodine (Betadine 10% Soln) Confirm Administered Dose 1 ml .ROUTE .STK- MED ONE Stop: 03/20/17 14:52 Last Admin: 03/20/17 17:48 Dose: 1 ml Propofol (Diprivan 20 Ml) Confirm Administered Dose 200 mg .ROUTE .STK-MED ONE Stop: 03/20/17 16:51 Vancomycin HCl (Vancomycin) Confirm Administered Dose 1 gm .ROUTE .STK-MED ONE Stop: 03/20/17 17:54 - Exam Quality Assessment: No: Supplemental Oxygen General: Alert, Oriented, Cooperative, No Acute Distress Neck: Supple Lungs: Normal Respiratory Effort GI/Abdominal Exam: Soft, No Distention Extremities: No Pedal Edema (on the right) Wound/Incisions: Dressing Dry and Intact (left thigh ) - Problem List & Annotations (1) Fracture of right hip SNOMED Code(s): 396569645 Code(s): S72.001A - FRACTURE OF UNSP PART OF NECK OF RIGHT FEMUR, INIT Status: Acute Current Visit: Yes Qualifiers: Encounter type: initial encounter Fracture type: closed Qualified Code(s) : S72.001A - Fracture of unspecified part of neck of right femur, initial encounter for closed fracture (2) Weight loss SNOMED Code(s): 93444172 Code(s): R63.4 - ABNORMAL WEIGHT LOSS Status: Acute Current Visit: Yes (3) Coronary artery disease SNOMED Code(s): 67650512 Code(s): I25.10 - ATHSCL HEART DISEASE OF [place] CORONARY ARTERY W/O ANG PCTRS Status: Chronic Current Visit: Yes Qualifiers: Coronary Disease-Associated Artery/Lesion type: [place] artery [place] vs. transplanted heart: [place] heart Associated angina: without angina Qualified Code(s): I25.10 - Atherosclerotic heart disease of [place] coronary artery without angina pectoris (4) Peripheral vascular disease SNOMED Code(s): 926226138 Code(s): I73.9 - PERIPHERAL VASCULAR DISEASE, UNSPECIFIED Status: Chronic Current Visit: Yes (5) Amputation of right lower extremity below knee SNOMED Code(s): 998066299 Code(s): Z89.511 - ACQUIRED ABSENCE OF RIGHT LEG BELOW KNEE Status: Chronic Current Visit: Yes - Problem List Review Problem List Initiated/Reviewed/Updated: Yes - My Orders Last 24 Hours: My Active Orders 03/25/17 05:00 HGB [HEMOGLOBIN] [HEME] Timed - Plan Plan:: ASSESSMENT AND PLAN - Right hip fracture - secondary to fall. had a right hemiarthroplasty 03/20. Pain slowly improving. hoping to take some steps with a walker today. Unfortunately we are limited today and tomorrow with no physical therapy. -Increase activity as tolerated -postop cares as indicated per orthopedic team -Pain control -Physical therapy Hypokalemia - improved with supplementation. Coronary artery disease - vitals stable since surgery. -Continue medical management including dual antiplatelet therapy and beta rodney Peripheral vascular disease - Previous large vessel stenting in the lower extremities. Stable at this time. 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 -Dietary consult -outpatient follow-up with Dr. Gonzalez/Rozina Donohue -Dietary supplements Maintenance issues - - DVT prophylaxis - mechanical on left leg and dual antiplatelet therapy - GI prophylaxis - PPI - Nutrition - bariatric diet - Neves catheter - removed Disposition - anticipate discharge home after the hospital stay. not safe for hospital discharge at this time. Patient is not interested in a [facility] stay. Hopefully over the next couple of days she will be able to improve her strength enough to be safe at home. With the holiday weekend no [facility] beds are available. Familia Ibarra M.D.
[2017-03-24] MEDS: atorvaSTATin 20 MG Tab PO SCH (21:46)
[2017-03-25] MEDS: traMADol 50 MG Tab PO PRN ×2 (02:30→22:03)
[2017-03-25] MEDS: Pantoprazole 40 MG Tab.CR PO SCH (07:17)
[2017-03-25] MEDS: Diazepam 5 MG Tab PO PRN ×2 (07:17→19:22)
[2017-03-25] MEDS: Acetaminophen/HYDROcodone 325-5 MG Tab PO PRN ×3 (07:18→19:22)
[2017-03-25] MEDS: Magnesium Hydroxide 400 MG/5 ML Susp 30 ML Cup PO SCH ×2 (08:57→20:32)
[2017-03-25] MEDS: Metoprolol Tartrate 25 MG Tab PO SCH ×2 (08:58→20:29)
[2017-03-25] MEDS: Bisacodyl 5 MG Tab PO SCH (08:58)
[2017-03-25] MEDS: Aspirin 81 MG Tab.EC PO SCH (08:58)
[2017-03-25] MEDS: Sennosides 8.6 MG Tab PO SCH ×2 (08:58→20:28)
[2017-03-25] MEDS: Docusate Sodium 100 MG Cap PO SCH ×2 (08:58→20:29)
[2017-03-25] MEDS: Clopidogrel 75 MG Tab PO SCH (08:59)
[2017-03-25] MEDS: Sodium Chloride 0.9% 10 ML Syringe FLUSH SCH (08:59)
--- NOTE | 2017-03-25 12:20 | PCM.PN ---
- General Info Date of Service: 03/25/17 Subjective Update: This patient is status post hemiarthroplasty done for hip fracture. She has been somewhat slow in recovering since surgery. 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 She is adamant in refusing prison placement and would like to be discharged home with home health care. She is otherwise been stable and afebrile. - Review of Systems General: Reports: Weakness. Denies: Fever, Chills Pulmonary: Reports: No Symptoms Cardiovascular: Reports: No Symptoms Gastrointestinal: Reports: No Symptoms Musculoskeletal: Reports: Joint Pain - Patient Data Vitals - Most Recent: Last Vital Signs Temp 96.8 F 03/25/17 11:29 Pulse 73 03/25/17 11:29 Resp 16 03/25/17 11:29 BP 126/54 L 03/25/17 11:29 Pulse Ox 100 03/25/17 11:29 Weight - Most Recent: 144 lb I&O - Last 24 Hours: Intake & Output 03/24/17 03/25/17 03/25/17 22:59 06:59 14:59 Intake Total 480 240 240 Output Total 400 100 Balance 80 240 140 Lab Results Last 24 Hours: Laboratory Results - last 24 hr 03/25/17 Range/Units 04:49 Hgb 8.1 L (12.0-15.0) g/dL Med Orders - Current: Current Medications Acetaminophen (Tylenol) 650 mg PO Q4H PRN PRN Reason: Pain (Mild 1-3)/fever Last Admin: 03/21/17 02:49 Dose: 650 mg Hydrocodone Bitart/Acetaminophen ([place] 325-5 Mg) 1 - 2 tab PO Q4H PRN PRN Reason: Pain (moderate 4-6) Last Admin: 03/25/17 07:18 Dose: 2 tab Al Hydroxide/Mg Hydroxide (Mag-Al Plus) 30 ml PO Q4H PRN PRN Reason: Constipation Aspirin (Halfprin) 81 mg PO DAILY [facility] Last Admin: 03/25/17 08:58 Dose: 81 mg Atorvastatin Calcium (Lipitor) 40 mg PO BEDTIME [facility] Last Admin: 03/24/17 21:46 Dose: 40 mg Bisacodyl (Dulcolax) 10 mg PO DAILY [facility] Last Admin: 03/25/17 08:58 Dose: 10 mg Clopidogrel Bisulfate (Plavix) 75 mg PO DAILY [facility] Last Admin: 03/25/17 08:59 Dose: 75 mg Diazepam (Valium.) 5 mg PO Q4H PRN PRN Reason: Muscle Spasm Last Admin: 03/25/17 07:17 Dose: 5 mg Diphenhydramine HCl (Benadryl) 25 mg IVPUSH Q4H PRN PRN Reason: Itching Docusate Sodium (Colace) 100 mg PO BID [facility] Last Admin: 03/25/17 08:58 Dose: 100 mg Magnesium Hydroxide (Milk Of Magnesia) 30 ml PO BID [facility] Last Admin: 03/25/17 08:57 Dose: 30 ml Metoprolol Tartrate (Lopressor) 25 mg PO BID [facility] Last Admin: 03/25/17 08:58 Dose: 25 mg Morphine Sulfate (Morphine) 2 mg IVPUSH Q2H PRN PRN Reason: Pain Last Admin: 03/21/17 21:20 Dose: 2 mg Naloxone HCl (Narcan) 0.1 mg IVPUSH ONETIME PRN PRN Reason: Oversedation Ondansetron HCl (Zofran Odt) 4 mg PO Q6H PRN PRN Reason: Nausea able to take PO Ondansetron HCl (Zofran) 4 mg IV Q6H PRN PRN Reason: Nausea/Vomiting Pantoprazole Sodium (Protonix) 40 mg PO DAILY@0730 [facility] Last Admin: 03/25/17 07:17 Dose: 40 mg Polyethylene Glycol (Miralax) 17 gm PO DAILY PRN PRN Reason: Constipation Senna (Senna) 8.6 mg PO BID [facility] Last Admin: 03/25/17 08:58 Dose: 8.6 mg Senna/Docusate Sodium (Senna Plus) 1 tab PO BID PRN PRN Reason: Constipation Sodium Chloride (Saline Flush) 10 ml FLUSH DAILY [facility] Last Admin: 03/25/17 08:59 Dose: 10 ml Tramadol HCl (Ultram) 100 mg PO Q6H PRN PRN Reason: Pain Last Admin: 03/25/17 02:30 Dose: 100 mg Zolpidem Tartrate (Ambien) 5 mg PO BEDTIME PRN PRN Reason: Sleep Discontinued Medications Hydrocodone Bitart/Acetaminophen ([place] 325-5 Mg) 1 - 2 tab PO Q4H PRN PRN Reason: Pain (moderate 4-6) Aspirin (Halfprin) 81 mg PO DAILY [facility] Aspirin (Ecotrin) 325 mg PO DAILY [facility] Bupivacaine HCl/Epinephrine Bitart ([place] 0.5%/Epinephrine 1:200,000) Confirm Administered Dose 50 ml .ROUTE .STK-MED ONE Stop: 03/20/17 14:51 Last Admin: 03/20/17 17:47 Dose: 30 ml Ephedrine Sulfate (Ephedrine Sulfate) Confirm Administered Dose 50 mg .ROUTE .STK-MED ONE Stop: 03/20/17 17:21 Fentanyl (Sublimaze) Confirm Administered Dose 100 mcg .ROUTE .STK-MED ONE Stop: 03/20/17 16:51 Gentamicin Sulfate (Gentamicin) Confirm Administered Dose 240 mg .ROUTE .STK- MED ONE Stop: 03/20/17 14:51 Last Admin: 03/20/17 17:47 Dose: 240 mg Hydromorphone HCl (Dilaudid) 0.5 - 1 mg IVPUSH Q2H PRN PRN Reason: Pain (severe 7-10) Sodium Chloride (Normal Saline) 1,000 mls @ 250 mls/hr IV ASDIRECTED [facility] Last Admin: 03/20/17 13:20 Dose: 250 mls/hr Tranexamic Acid 460 mg/ Sodium (Chloride) 54.6 mls @ 218.4 mls/hr IV Q2H [facility] Stop: 03/20/17 18:14 Last Admin: 03/20/17 18:09 Dose: 218.4 mls/hr Clindamycin Phosphate 600 mg/ (Sodium Chloride) 54 mls @ 108 mls/hr IV ONETIME ONE Stop: 03/20/17 17:04 Last Admin: 03/20/17 17:35 Dose: 108 mls/hr Sodium Chloride (Normal Saline) 1,000 mls @ 125 mls/hr IV ASDIRECTED [facility] Last Admin: 03/21/17 03:48 Dose: 125 mls/hr Lactated Ringer's (Ringers, Lactated) Confirm Administered Dose 1,000 mls @ as directed .ROUTE .STK-MED ONE Stop: 03/20/17 18:08 Clindamycin Phosphate 600 mg/ (Sodium Chloride) 54 mls @ 100 mls/hr IV Q6H [facility] Stop: 03/21/17 12:03 Last Admin: 03/21/17 11:44 Dose: 100 mls/hr Sodium Chloride (Normal Saline) 1,000 mls @ 50 mls/hr IV ASDIRECTED [facility] Last Admin: 03/22/17 09:34 Dose: 50 mls/hr Ketamine HCl (Ketalar) 23 mg IV ASDIRECTED [facility] Stop: 03/20/17 18:00 Midazolam HCl (Versed 1 Mg/Ml) Confirm Administered Dose 2 mg .ROUTE .STK-MED ONE Stop: 03/20/17 16:52 Ondansetron HCl (Zofran) 8 mg IVPUSH Q4H PRN PRN Reason: Nausea/Vomiting Oxycodone HCl (Oxycodone) 10 mg PO Q4H PRN PRN Reason: Pain Stop: 03/21/17 18:26 Last Admin: 03/21/17 18:18 Dose: 10 mg Oxycodone/Acetaminophen (Percocet 325-5 Mg) 2 tab PO Q4H PRN PRN Reason: Pain Potassium Chloride (Klor-Con M20) 40 meq PO ONETIME ONE Stop: 03/23/17 10:31 Last Admin: 03/23/17 10:32 Dose: 40 meq Povidone Iodine (Betadine 10% Soln) Confirm Administered Dose 1 ml .ROUTE .STK- MED ONE Stop: 03/20/17 14:52 Last Admin: 03/20/17 17:48 Dose: 1 ml Propofol (Diprivan 20 Ml) Confirm Administered Dose 200 mg .ROUTE .STK-MED ONE Stop: 03/20/17 16:51 Vancomycin HCl (Vancomycin) Confirm Administered Dose 1 gm .ROUTE .STK-MED ONE Stop: 03/20/17 17:54 - Exam Quality Assessment: DVT Prophylaxis General: Alert, Oriented, Cooperative, Mild Distress Lungs: Clear to Auscultation, Normal Respiratory Effort Cardiovascular: Regular Rate, Regular Rhythm, No Murmurs GI/Abdominal Exam: Soft, Non-Tender, No Organomegaly, No Distention Extremities: Non-Tender, No Pedal Edema Skin: Warm, Dry - Problem List Review Problem List Initiated/Reviewed/Updated: Yes - Plan Plan:: ASSESSMENT AND PLAN - Right hip fracture - secondary to fall. had a right hemiarthroplasty 03/20. Continues to have significant pain, seems to be slowly improving. -Increase activity as tolerated -postop cares as indicated per orthopedic team -Pain control -Physical therapy Hypokalemia - resolved Coronary artery disease - vitals stable since surgery. -Continue medical management including dual antiplatelet therapy and beta rodney Peripheral vascular disease - Previous large vessel stenting in the lower extremities. Stable at this time. 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 -Dietary consult -outpatient follow-up with Dr. Gonzalez/Rozina Donohue -Dietary supplements Maintenance issues - - DVT prophylaxis - mechanical on left leg and dual antiplatelet therapy - GI prophylaxis - PPI - Nutrition - bariatric diet - Neves catheter - removed Disposition - anticipate discharge home after the hospital stay. not safe for hospital discharge at this time. Patient is not interested in a prison stay.
[2017-03-25] MEDS ORDERED: diphenhydrAMINE 25 MG Cap PO PRN (20:09)
[2017-03-25] MEDS: atorvaSTATin 20 MG Tab PO SCH (20:28)
[2017-03-26] MEDS: Acetaminophen/HYDROcodone 325-5 MG Tab PO PRN ×2 (02:42→10:10)
[2017-03-26] MEDS: Diazepam 5 MG Tab PO PRN ×2 (02:42→12:54)
[2017-03-26] MEDS: traMADol 50 MG Tab PO PRN (05:06)
[2017-03-26] MEDS: Sodium Chloride 0.9% 10 ML Syringe FLUSH SCH (09:14)
[2017-03-26] MEDS: Bisacodyl 5 MG Tab PO SCH (09:15)
[2017-03-26] MEDS: Sennosides 8.6 MG Tab PO SCH ×2 (09:15→20:10)
[2017-03-26] MEDS: Aspirin 81 MG Tab.EC PO SCH (09:15)
[2017-03-26] MEDS: Docusate Sodium 100 MG Cap PO SCH ×2 (09:15→20:10)
[2017-03-26] MEDS: Magnesium Hydroxide 400 MG/5 ML Susp 30 ML Cup PO SCH ×2 (09:15→20:10)
[2017-03-26] MEDS: Metoprolol Tartrate 25 MG Tab PO SCH ×2 (09:16→20:10)
[2017-03-26] MEDS: Clopidogrel 75 MG Tab PO SCH (09:16)
[2017-03-26] MEDS: Pantoprazole 40 MG Tab.CR PO SCH (09:16)
--- NOTE | 2017-03-26 19:18 | PCM.PN ---
- General Info Date of Service: 03/26/17 Subjective Update: This patient has remained stable over the past 24 hours, vital signs have been good and she is been afebrile. Continues to work with physical therapy and each day has bee able to ambulate somewhat further, pain control has been adequate. - Review of Systems Pulmonary: Reports: No Symptoms Cardiovascular: Reports: No Symptoms Gastrointestinal: Reports: No Symptoms Musculoskeletal: Reports: Joint Pain - Patient Data Vitals - Most Recent: Last Vital Signs Temp 97.8 F 03/26/17 15:49 Pulse 73 03/26/17 15:49 Resp 18 03/26/17 15:49 BP 96/52 L 03/26/17 16:21 Pulse Ox 98 03/26/17 15:49 Weight - Most Recent: 144 lb I&O - Last 24 Hours: Intake & Output 03/26/17 03/26/17 03/26/17 06:59 14:59 22:59 Intake Total 240 480 Output Total 400 400 Balance 240 80 -400 Med Orders - Current: Current Medications Acetaminophen (Tylenol) 650 mg PO Q4H PRN PRN Reason: Pain (Mild 1-3)/fever Last Admin: 03/21/17 02:49 Dose: 650 mg Hydrocodone Bitart/Acetaminophen ([place] 325-5 Mg) 1 - 2 tab PO Q4H PRN PRN Reason: Pain (moderate 4-6) Last Admin: 03/26/17 10:10 Dose: 2 tab Al Hydroxide/Mg Hydroxide (Mag-Al Plus) 30 ml PO Q4H PRN PRN Reason: Constipation Aspirin (Halfprin) 81 mg PO DAILY [facility] Last Admin: 03/26/17 09:15 Dose: 81 mg Atorvastatin Calcium (Lipitor) 40 mg PO BEDTIME [facility] Last Admin: 03/25/17 20:28 Dose: 40 mg Bisacodyl (Dulcolax) 10 mg PO DAILY [facility] Last Admin: 03/26/17 09:15 Dose: 10 mg Clopidogrel Bisulfate (Plavix) 75 mg PO DAILY [facility] Last Admin: 03/26/17 09:16 Dose: 75 mg Diazepam (Valium.) 5 mg PO Q4H PRN PRN Reason: Muscle Spasm Last Admin: 03/26/17 12:54 Dose: 5 mg Diphenhydramine HCl (Benadryl) 25 mg IVPUSH Q4H PRN PRN Reason: Itching Diphenhydramine HCl (Benadryl) 25 mg PO Q4H PRN PRN Reason: Itching Last Admin: 03/25/17 20:28 Dose: 25 mg Docusate Sodium (Colace) 100 mg PO BID [facility] Last Admin: 03/26/17 09:15 Dose: 100 mg Magnesium Hydroxide (Milk Of Magnesia) 30 ml PO BID [facility] Last Admin: 03/26/17 09:15 Dose: 30 ml Metoprolol Tartrate (Lopressor) 25 mg PO BID [facility] Last Admin: 03/26/17 09:16 Dose: 25 mg Morphine Sulfate (Morphine) 2 mg IVPUSH Q2H PRN PRN Reason: Pain Last Admin: 03/21/17 21:20 Dose: 2 mg Naloxone HCl (Narcan) 0.1 mg IVPUSH ONETIME PRN PRN Reason: Oversedation Ondansetron HCl (Zofran Odt) 4 mg PO Q6H PRN PRN Reason: Nausea able to take PO Ondansetron HCl (Zofran) 4 mg IV Q6H PRN PRN Reason: Nausea/Vomiting Last Admin: 03/25/17 14:13 Dose: 4 mg Pantoprazole Sodium (Protonix) 40 mg PO DAILY@0730 [facility] Last Admin: 03/26/17 09:16 Dose: 40 mg Polyethylene Glycol (Miralax) 17 gm PO DAILY PRN PRN Reason: Constipation Senna (Senna) 8.6 mg PO BID [facility] Last Admin: 03/26/17 09:15 Dose: 8.6 mg Senna/Docusate Sodium (Senna Plus) 1 tab PO BID PRN PRN Reason: Constipation Sodium Chloride (Saline Flush) 10 ml FLUSH DAILY [facility] Last Admin: 03/26/17 09:14 Dose: 10 ml Tramadol HCl (Ultram) 100 mg PO Q6H PRN PRN Reason: Pain Last Admin: 03/26/17 05:06 Dose: 100 mg Zolpidem Tartrate (Ambien) 5 mg PO BEDTIME PRN PRN Reason: Sleep Last Admin: 03/25/17 22:03 Dose: 5 mg Discontinued Medications Hydrocodone Bitart/Acetaminophen ([place] 325-5 Mg) 1 - 2 tab PO Q4H PRN PRN Reason: Pain (moderate 4-6) Aspirin (Halfprin) 81 mg PO DAILY [facility] Aspirin (Ecotrin) 325 mg PO DAILY [facility] Bupivacaine HCl/Epinephrine Bitart ([place] 0.5%/Epinephrine 1:200,000) Confirm Administered Dose 50 ml .ROUTE .STK-MED ONE Stop: 03/20/17 14:51 Last Admin: 03/20/17 17:47 Dose: 30 ml Ephedrine Sulfate (Ephedrine Sulfate) Confirm Administered Dose 50 mg .ROUTE .STK-MED ONE Stop: 03/20/17 17:21 Fentanyl (Sublimaze) Confirm Administered Dose 100 mcg .ROUTE .STK-MED ONE Stop: 03/20/17 16:51 Gentamicin Sulfate (Gentamicin) Confirm Administered Dose 240 mg .ROUTE .STK- MED ONE Stop: 03/20/17 14:51 Last Admin: 03/20/17 17:47 Dose: 240 mg Hydromorphone HCl (Dilaudid) 0.5 - 1 mg IVPUSH Q2H PRN PRN Reason: Pain (severe 7-10) Sodium Chloride (Normal Saline) 1,000 mls @ 250 mls/hr IV ASDIRECTED [facility] Last Admin: 03/20/17 13:20 Dose: 250 mls/hr Tranexamic Acid 460 mg/ Sodium (Chloride) 54.6 mls @ 218.4 mls/hr IV Q2H [facility] Stop: 03/20/17 18:14 Last Admin: 03/20/17 18:09 Dose: 218.4 mls/hr Clindamycin Phosphate 600 mg/ (Sodium Chloride) 54 mls @ 108 mls/hr IV ONETIME ONE Stop: 03/20/17 17:04 Last Admin: 03/20/17 17:35 Dose: 108 mls/hr Sodium Chloride (Normal Saline) 1,000 mls @ 125 mls/hr IV ASDIRECTED [facility] Last Admin: 03/21/17 03:48 Dose: 125 mls/hr Lactated Ringer's (Ringers, Lactated) Confirm Administered Dose 1,000 mls @ as directed .ROUTE .STK-MED ONE Stop: 03/20/17 18:08 Clindamycin Phosphate 600 mg/ (Sodium Chloride) 54 mls @ 100 mls/hr IV Q6H [facility] Stop: 03/21/17 12:03 Last Admin: 03/21/17 11:44 Dose: 100 mls/hr Sodium Chloride (Normal Saline) 1,000 mls @ 50 mls/hr IV ASDIRECTED [facility] Last Admin: 03/22/17 09:34 Dose: 50 mls/hr Ketamine HCl (Ketalar) 23 mg IV ASDIRECTED [facility] Stop: 03/20/17 18:00 Midazolam HCl (Versed 1 Mg/Ml) Confirm Administered Dose 2 mg .ROUTE .STK-MED ONE Stop: 03/20/17 16:52 Ondansetron HCl (Zofran) 8 mg IVPUSH Q4H PRN PRN Reason: Nausea/Vomiting Oxycodone HCl (Oxycodone) 10 mg PO Q4H PRN PRN Reason: Pain Stop: 03/21/17 18:26 Last Admin: 03/21/17 18:18 Dose: 10 mg Oxycodone/Acetaminophen (Percocet 325-5 Mg) 2 tab PO Q4H PRN PRN Reason: Pain Potassium Chloride (Klor-Con M20) 40 meq PO ONETIME ONE Stop: 03/23/17 10:31 Last Admin: 03/23/17 10:32 Dose: 40 meq Povidone Iodine (Betadine 10% Soln) Confirm Administered Dose 1 ml .ROUTE .STK- MED ONE Stop: 03/20/17 14:52 Last Admin: 03/20/17 17:48 Dose: 1 ml Propofol (Diprivan 20 Ml) Confirm Administered Dose 200 mg .ROUTE .STK-MED ONE Stop: 03/20/17 16:51 Vancomycin HCl (Vancomycin) Confirm Administered Dose 1 gm .ROUTE .STK-MED ONE Stop: 03/20/17 17:54 - Exam Quality Assessment: DVT Prophylaxis General: Alert, Oriented, Cooperative, No Acute Distress Lungs: Clear to Auscultation, Normal Respiratory Effort Cardiovascular: Regular Rate, Regular Rhythm, No Murmurs GI/Abdominal Exam: Soft, Non-Tender, No Organomegaly, No Distention Extremities: Non-Tender, No Pedal Edema Skin: Warm, Dry - Problem List Review Problem List Initiated/Reviewed/Updated: Yes - My Orders Last 24 Hours: My Active Orders 03/25/17 20:09 diphenhydrAMINE [Benadryl] 25 mg PO Q4H PRN - Plan Plan:: ASSESSMENT AND PLAN - Right hip fracture - secondary to fall. had a right hemiarthroplasty 03/20. Continues to have significant pain, seems to be slowly improving. -Increase activity as tolerated -postop cares as indicated per orthopedic team -Pain control -Physical therapy Hypokalemia - resolved Coronary artery disease - vitals stable since surgery. -Continue medical management including dual antiplatelet therapy and beta rodney Peripheral vascular disease - Previous large vessel stenting in the lower extremities. Stable at this time. 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 -Dietary consult -outpatient follow-up with Dr. Gonzalez/Rozina Donohue -Dietary supplements Maintenance issues - - DVT prophylaxis - mechanical on left leg and dual antiplatelet therapy - GI prophylaxis - PPI - Nutrition - bariatric diet - Neves catheter - removed Disposition - anticipate discharge to half-way tomorrow
[2017-03-26] MEDS: atorvaSTATin 20 MG Tab PO SCH (20:10)
[2017-03-27] MEDS: Acetaminophen/HYDROcodone 325-5 MG Tab PO PRN ×3 (01:13→09:07)
[2017-03-27] MEDS: Diazepam 5 MG Tab PO PRN (01:52)
[2017-03-27] MEDS: Docusate Sodium 100 MG Cap PO SCH (09:02)
[2017-03-27] MEDS: Pantoprazole 40 MG Tab.CR PO SCH (09:02)
[2017-03-27] MEDS: Bisacodyl 5 MG Tab PO SCH (09:02)
[2017-03-27] MEDS: Aspirin 81 MG Tab.EC PO SCH (09:03)
[2017-03-27] MEDS: Clopidogrel 75 MG Tab PO SCH (09:03)
[2017-03-27] MEDS: Metoprolol Tartrate 25 MG Tab PO SCH (09:03)
[2017-03-27] MEDS: Sennosides 8.6 MG Tab PO SCH (09:03)
[2017-03-27] MEDS: Magnesium Hydroxide 400 MG/5 ML Susp 30 ML Cup PO SCH ×2 (09:04→09:05)
--- NOTE | 2017-03-27 10:29 | PCM.DCSUM1 ---
Discharge Summary - Hospital Course Brief History: This patient is a 76-year-old woman who fell at home and experienced a right hip fracture. She was admitted through the emergency department for surgical repair of the fracture. - Discharge Data Discharge Date: 03/27/17 Discharge Disposition: Home, Self-Care 01 Condition: Stable - Discharge Diagnosis/Problem(s) (1) Fracture of right hip SNOMED Code(s): 387484350 ICD Code: S72.001A - FRACTURE OF UNSP PART OF NECK OF RIGHT FEMUR, INIT Status: Acute Current Visit: Yes Qualifiers: Encounter type: initial encounter Fracture type: closed Qualified Code(s) : S72.001A - Fracture of unspecified part of neck of right femur, initial encounter for closed fracture (2) Amputation of right lower extremity below knee SNOMED Code(s): 969591042 ICD Code: Z89.511 - ACQUIRED ABSENCE OF RIGHT LEG BELOW KNEE Status: Chronic Current Visit: Yes (3) Peripheral vascular disease SNOMED Code(s): 331845794 ICD Code: I73.9 - PERIPHERAL VASCULAR DISEASE, UNSPECIFIED Status: Chronic Current Visit: Yes - Patient Summary/Data Consults: Consultations 03/20/17 16:12 Consult to Career Orientation Teacher [CONS] Routine Comment: Physician Instructions: Quantity: Reason for Consult: Unintentional weight loss, history of partial gastrectomy Consult to Physician [CONS] Routine Consulting Provider: Garland Gonzalez Call Completed to Consulting Physician: Yes Reason for Consult: right hip fracture Person Notified: BDS Date Notified: 03/20/17 03/20/17 18:26 OT Evaluation and Treatment [CONS] Routine Please Evaluate and Treat. OT Reason for Consult: Strengthening This query below is only for informational purposes and is not editable. Admission Diagnosis/Problem: Hip fracture requiring operative repair PT Evaluation and Treatment [CONS] Routine Please Evaluate and Treat. PT Reason for Consult: Strengthening This query below is only for informational purposes and is not editable. Admission Diagnosis/Problem: Hip fracture requiring operative repair 03/21/17 12:42 Consult to Career Orientation Teacher [CONS] Routine Comment: Physician Instructions: Quantity: Hospital Course: This patient is a 76-year-old woman with a known history of coronary artery disease as well as peripheral arterial disease. 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 She unfortunately fell at home experiencing significant pain in her right hip. On evaluation in the emergency department x-ray did document fracture of the hip and she was admitted for pain management and orthopedic consultation. She was seen and evaluated by Dr. Sebastian Gonzalez, surgery was performed with a right jessica-arthroplasty. Recovery was somewhat slow, complicated by her previous below the knee amputation. Became apparent that she was not going to be able to return home and be able to transfer and ambulate safely decision was made to proceed with care home placement until she was recovered enough strength that she can be more independent. She will be discharged to the care home for restorative physical therapy and occupational therapy. Activity will be as tolerated and she will resume her usual diet. Follow-up appointment will be scheduled with Dr. Gonzalez in 3 weeks. - Patient Instructions Diet: Usual Diet as Tolerated Activity: Apply Ice, As Tolerated Driving: Do Not Drive Showering/Bathing: May Shower, No Tub Bathing/Swimming Wound/Incision Care: Keep Operative Site/Wound Site Clean and Dry, Change Dressing Daily Notify Provider of: Fever, Increased Pain, Swelling and Redness, Drainage, Nausea and/or Vomiting - Discharge Plan Prescriptions/Med Rec: Acetaminophen/HYDROcodone [Dania 325-5 MG] 1 tab PO Q4H PRN #30 tablet PRN Reason: Pain (Moderate 4-6) Home Medications: Home Meds Aspirin [Ecotrin] 81 mg PO DAILY 12/03/12 [History] Multivitamins 1 cap PO DAILY 12/03/12 [History] Nitroglycerin [Nitrostat] 1 tab PO ASDIRECTED PRN 09/28/13 [History] Clopidogrel Bisulfate [Plavix] 75 mg PO DAILY 12/16/13 [History] Diazepam [Valium] 5 mg PO DAILY 02/16/15 [History] Metoprolol Tartrate 25 mg PO BID 06/08/15 [History] Pantoprazole [ProTONIX] 40 mg PO DAILY 08/24/15 [History] atorvaSTATin [Lipitor] 40 mg PO BEDTIME 08/24/15 [History] Acetaminophen/HYDROcodone [Dania 325-5 MG] 1 tab PO Q4H PRN #30 tablet 03/27/17 [Rx] Patient Handouts: Constipation, Adult Forms: ED Department Discharge Referrals: Sonido Stein MD [Primary Care Provider] - Irina Ruiz NP [Nurse Practitioner] - (3 week follow up) - Patient Data Vitals - Most Recent: Last Vital Signs Temp 97.9 F 03/27/17 07:26 Pulse 93 03/27/17 09:03 Resp 16 03/27/17 07:26 BP 132/54 L 03/27/17 09:03 Pulse Ox 97 03/27/17 07:26 Weight - Most Recent: 144 lb I&O - Last 24 hours: Intake & Output 03/26/17 03/27/17 03/27/17 22:59 06:59 14:59 Intake Total 640 970 Output Total 550 200 Balance 90 770 Med Orders - Current: Current Medications Acetaminophen (Tylenol) 650 mg PO Q4H PRN PRN Reason: Pain (Mild 1-3)/fever Last Admin: 03/21/17 02:49 Dose: 650 mg Hydrocodone Bitart/Acetaminophen (Dania 325-5 Mg) 1 - 2 tab PO Q4H PRN PRN Reason: Pain (moderate 4-6) Last Admin: 03/27/17 09:07 Dose: 2 tab Al Hydroxide/Mg Hydroxide (Mag-Al Plus) 30 ml PO Q4H PRN PRN Reason: Constipation Aspirin (Halfprin) 81 mg PO DAILY [facility] Last Admin: 03/27/17 09:03 Dose: 81 mg Atorvastatin Calcium (Lipitor) 40 mg PO BEDTIME [facility] Last Admin: 03/26/17 20:10 Dose: 40 mg Bisacodyl (Dulcolax) 10 mg PO DAILY [facility] Last Admin: 03/27/17 09:02 Dose: 10 mg Clopidogrel Bisulfate (Plavix) 75 mg PO DAILY [facility] Last Admin: 03/27/17 09:03 Dose: 75 mg Diazepam (Valium.) 5 mg PO Q4H PRN PRN Reason: Muscle Spasm Last Admin: 03/27/17 01:52 Dose: 5 mg Diphenhydramine HCl (Benadryl) 25 mg IVPUSH Q4H PRN PRN Reason: Itching Diphenhydramine HCl (Benadryl) 25 mg PO Q4H PRN PRN Reason: Itching Last Admin: 03/25/17 20:28 Dose: 25 mg Docusate Sodium (Colace) 100 mg PO BID [facility] Last Admin: 03/27/17 09:02 Dose: 100 mg Magnesium Hydroxide (Milk Of Magnesia) 30 ml PO BID [facility] Last Admin: 03/27/17 09:05 Dose: Not Given Metoprolol Tartrate (Lopressor) 25 mg PO BID [facility] Last Admin: 03/27/17 09:03 Dose: 25 mg Morphine Sulfate (Morphine) 2 mg IVPUSH Q2H PRN PRN Reason: Pain Last Admin: 03/21/17 21:20 Dose: 2 mg Naloxone HCl (Narcan) 0.1 mg IVPUSH ONETIME PRN PRN Reason: Oversedation Ondansetron HCl (Zofran Odt) 4 mg PO Q6H PRN PRN Reason: Nausea able to take PO Ondansetron HCl (Zofran) 4 mg IV Q6H PRN PRN Reason: Nausea/Vomiting Last Admin: 03/25/17 14:13 Dose: 4 mg Pantoprazole Sodium (Protonix) 40 mg PO DAILY@0730 [facility] Last Admin: 03/27/17 09:02 Dose: 40 mg Polyethylene Glycol (Miralax) 17 gm PO DAILY PRN PRN Reason: Constipation Senna (Senna) 8.6 mg PO BID [facility] Last Admin: 03/27/17 09:03 Dose: 8.6 mg Senna/Docusate Sodium (Senna Plus) 1 tab PO BID PRN PRN Reason: Constipation Sodium Chloride (Saline Flush) 10 ml FLUSH DAILY [facility] Last Admin: 03/26/17 09:14 Dose: 10 ml Tramadol HCl (Ultram) 100 mg PO Q6H PRN PRN Reason: Pain Last Admin: 03/26/17 05:06 Dose: 100 mg Zolpidem Tartrate (Ambien) 5 mg PO BEDTIME PRN PRN Reason: Sleep Last Admin: 03/25/17 22:03 Dose: 5 mg Discontinued Medications Hydrocodone Bitart/Acetaminophen (Dania 325-5 Mg) 1 - 2 tab PO Q4H PRN PRN Reason: Pain (moderate 4-6) Aspirin (Halfprin) 81 mg PO DAILY [facility] Aspirin (Ecotrin) 325 mg PO DAILY [facility] Bupivacaine HCl/Epinephrine Bitart (Marcaine 0.5%/Epinephrine 1:200,000) Confirm Administered Dose 50 ml .ROUTE .STK-MED ONE Stop: 03/20/17 14:51 Last Admin: 03/20/17 17:47 Dose: 30 ml Ephedrine Sulfate (Ephedrine Sulfate) Confirm Administered Dose 50 mg .ROUTE .STK-MED ONE Stop: 03/20/17 17:21 Fentanyl (Sublimaze) Confirm Administered Dose 100 mcg .ROUTE .STK-MED ONE Stop: 03/20/17 16:51 Gentamicin Sulfate (Gentamicin) Confirm Administered Dose 240 mg .ROUTE .STK- MED ONE Stop: 03/20/17 14:51 Last Admin: 03/20/17 17:47 Dose: 240 mg Hydromorphone HCl (Dilaudid) 0.5 - 1 mg IVPUSH Q2H PRN PRN Reason: Pain (severe 7-10) Sodium Chloride (Normal Saline) 1,000 mls @ 250 mls/hr IV ASDIRECTED [facility] Last Admin: 03/20/17 13:20 Dose: 250 mls/hr Tranexamic Acid 460 mg/ Sodium (Chloride) 54.6 mls @ 218.4 mls/hr IV Q2H [facility] Stop: 03/20/17 18:14 Last Admin: 03/20/17 18:09 Dose: 218.4 mls/hr Clindamycin Phosphate 600 mg/ (Sodium Chloride) 54 mls @ 108 mls/hr IV ONETIME ONE Stop: 03/20/17 17:04 Last Admin: 03/20/17 17:35 Dose: 108 mls/hr Sodium Chloride (Normal Saline) 1,000 mls @ 125 mls/hr IV ASDIRECTED [facility] Last Admin: 03/21/17 03:48 Dose: 125 mls/hr Lactated Ringer's (Ringers, Lactated) Confirm Administered Dose 1,000 mls @ as directed .ROUTE .[facility] ONE Stop: 03/20/17 18:08 Clindamycin Phosphate 600 mg/ (Sodium Chloride) 54 mls @ 100 mls/hr IV Q6H [facility] Stop: 03/21/17 12:03 Last Admin: 03/21/17 11:44 Dose: 100 mls/hr Sodium Chloride (Normal Saline) 1,000 mls @ 50 mls/hr IV ASDIRECTED [facility] Last Admin: 03/22/17 09:34 Dose: 50 mls/hr Ketamine HCl (Ketalar) 23 mg IV ASDIRECTED [facility] Stop: 03/20/17 18:00 Midazolam HCl (Versed 1 Mg/Ml) Confirm Administered Dose 2 mg .ROUTE .STK-MED ONE Stop: 03/20/17 16:52 Ondansetron HCl (Zofran) 8 mg IVPUSH Q4H PRN PRN Reason: Nausea/Vomiting Oxycodone HCl (Oxycodone) 10 mg PO Q4H PRN PRN Reason: Pain Stop: 03/21/17 18:26 Last Admin: 03/21/17 18:18 Dose: 10 mg Oxycodone/Acetaminophen (Percocet 325-5 Mg) 2 tab PO Q4H PRN PRN Reason: Pain Potassium Chloride (Klor-Con M20) 40 meq PO ONETIME ONE Stop: 03/23/17 10:31 Last Admin: 03/23/17 10:32 Dose: 40 meq Povidone Iodine (Betadine 10% Soln) Confirm Administered Dose 1 ml .ROUTE .STK- MED ONE Stop: 03/20/17 14:52 Last Admin: 03/20/17 17:48 Dose: 1 ml Propofol (Diprivan 20 Ml) Confirm Administered Dose 200 mg .ROUTE .STK-MED ONE Stop: 03/20/17 16:51 Vancomycin HCl (Vancomycin) Confirm Administered Dose 1 gm .ROUTE .STK-MED ONE Stop: 03/20/17 17:54 *Q Meaningful Use (DIS) - VTE *Q VTE Criteria *Q: VTE Pharmacological Contraindications *Q: Patient Scheduled Surgery - Stroke *Q Stroke Criteria *Q: - AMI *Q AMI Criteria *Q:
[2017-03-27 10:32] VITALS: BP 131/45
[2017-03-27] MEDS: Sodium Chloride 0.9% 10 ML Syringe FLUSH SCH (11:05)
== END 2017-03-27 12:31 | disposition home or self-care (01) | DRG 470 ==
LOC: JP.ED 11:23 → JP.MS 14:33
PROVIDERS: ADMIT Internal Medicine; ATTEND Hospitalist
PROC: 0SRR0JA Replacement of Right Hip Joint, Femoral Surface with Synthetic Substitute, Uncemented, Open Approach (ICD-10-PCS; principal; 2017-03-20)
DX: S72.011A Unspecified intracapsular fracture of right femur, initial encounter for closed fracture (principal); I10 Essential (primary) hypertension; Z89.511 Acquired absence of right leg below knee; E11.9 Type 2 diabetes mellitus without complications; W18.39XA Other fall on same level, initial encounter; Y92.89 Other specified places as the place of occurrence of the external cause; M25.551 Pain in right hip; I73.9 Peripheral vascular disease, unspecified; R63.4 Abnormal weight loss; I25.10 Atherosclerotic heart disease of native coronary artery without angina pectoris; E78.00 Pure hypercholesterolemia, unspecified; I25.2 Old myocardial infarction; Z98.84 Bariatric surgery status; Z96.659 Presence of unspecified artificial knee joint; Z95.1 Presence of aortocoronary bypass graft; Z85.41 Personal history of malignant neoplasm of cervix uteri; K21.9 Gastro-esophageal reflux disease without esophagitis; Z87.01 Personal history of pneumonia (recurrent); H91.90 Unspecified hearing loss, unspecified ear; H54.7 Unspecified visual loss; E87.6 Hypokalemia; M60.9 Myositis, unspecified; M46.1 Sacroiliitis, not elsewhere classified; M48.061 Spinal stenosis, lumbar region without neurogenic claudication
CPT/HCPCS: 20553; 36415; 71010; 71010-26; 73502-26-RT; 73502-RT; 80048; 80053; 81001; 82962; 84443; 85018; 85025; 85027; 86850; 86900; 86901; 93005; 93010; 94762; 96360; 97110-GP; 97112-GP; 97140-GP; 97163-GP; 97165-GO; 97168-GO; 97530-GP; 97535-GP; 99283; 99285-25; A9270-GY; C1776; J1580; J2250; J2270; J2405; J2704; J3010; J3370; J7040; J7050; J7120; S0077

== ENCOUNTER 2017-08-02 09:31 | Day surgery (SDC) | payer MEDICARE, BC ==
[2017-08-02] MEDS ORDERED: Glycopyrrolate 0.2 MG/ML 2 ML SDV IVPUSH ONE (11:00)
[2017-08-02] MEDS ORDERED: Cyanocobalamin (Vitamin B12) 1,000 MCG/ML SDV IM ONE (11:00)
[2017-08-02] MEDS ORDERED: Lactated Ringers 1,000 ML IV ONE (11:00)
[2017-08-02] MEDS ORDERED: MVI, Adult with Vitamin K 10 ML, Thiamine 100 MG, Chromium/Copper/Mang/Selen/Zn 1 ML in... IV ONE ×4 (12:00)
[2017-08-02] MEDS ORDERED: Levofloxacin/Dextrose 5%-Water 500 MG in Premix Bag 1 BAG IV ONE (12:00)
[2017-08-02] MEDS ORDERED: fentaNYL 100 MCG/2 ML SDV ONE (12:14)
[2017-08-02] MEDS ORDERED: Propofol 200 MG/20 ML SDV ONE (12:14)
[2017-08-02] MEDS ORDERED: Lactated Ringers 1,000 ML IV SCH (14:30)
[2017-08-02] MEDS ORDERED: Lidocaine 2% 60 ML, Alum Hydrox/Mag Hydrox/Simeth 360 ML PO PRN ×2 (15:18)
[2017-08-02 15:42] VITALS: BP 117/79
--- NOTE | 2017-08-12 09:20 | OR ---
DATE OF PROCEDURE: 08/02/2017 PREOPERATIVE DIAGNOSIS: Epigastric pain and dysphagia status post proximal gastrectomy with Floridalma-en-Y gastrojejunostomy. POSTOPERATIVE DIAGNOSIS: Normal upper GI endoscopic exam status post partial gastrectomy with Floridalma-en-Y reconstruction. OPERATIVE PROCEDURE: Upper GI endoscopy with biopsies of gastric pouch for CLOtest. ANESTHESIA: IV sedation. INDICATION FOR PROCEDURE: A 77-year-old who is status post a partial gastrectomy with Floridalma- en-Y reconstruction for gastroesophageal reflux disease, recurrent after Maddy fundoplication, refractory to medical management. She presents now with weight loss and epigastric discomfort and dysphagia referable to the distal esophagus. The plan is to proceed with upper GI endoscopy with biopsies or dilation as indicated. Potential risks including bleeding and perforation were discussed, and the patient wishes to proceed. DETAILS OF PROCEDURE: The patient was taken to the operating room and placed in a left lateral decubitus position. IV sedation was administered, after which the upper GI endoscope was passed orally through the length of the esophagus and into the gastric pouch, from there through the gastrojejunostomy, roughly 20 cm into the Floridalma limb. Overall, the exam was entirely normal. There were no areas of significant inflammation and no areas of stricturing. Biopsies were obtained from the gastric pouch, sent for CLOtest for H. pylori. Minimal bleeding from the biopsy sites was seen and the procedure then concluded. At this point, we will have the patient be set up with the mixture of the 2 ounces of viscous Xylocaine with 12 ounces of Maalox to take 1 to 2 tablespoons before meals, and we will see the patient back next Saturday. If the patient continues to have these symptoms with postprandial discomfort after eating, we will probably need to consider getting a CT angiogram to look at the mesenteric vessels, given her vascular history to rule out any mesenteric occlusive disease. In the meantime, she was instructed that if things worsen, she should come in at an earlier point, either to the clinic or the emergency room. Ric Gonzalez MD /[id number]
== END 2017-08-02 16:05 | disposition home or self-care (01) ==
LOC: JP.SDS 09:31
PROVIDERS: ATTEND Surgery
DX: R13.10 Dysphagia, unspecified (principal); R10.13 Epigastric pain; R63.4 Abnormal weight loss; I10 Essential (primary) hypertension; I25.10 Atherosclerotic heart disease of native coronary artery without angina pectoris; K21.9 Gastro-esophageal reflux disease without esophagitis; Z90.3 Acquired absence of stomach [part of]; Z98.84 Bariatric surgery status
CPT/HCPCS: 43239; 82962; 87081; A9270; J1956; J2704; J3010; J3411; J3420; J7120; J3490

== ENCOUNTER 2018-07-09 10:54 | Outpatient (CLI) | payer MEDICARE, BC ==
[2018-07-09] MEDS ORDERED: Bupivacaine 0.5% 30 ML SDV ONE (11:03)
[2018-07-09] MEDS ORDERED: methylPREDNISolone Acetate 40 MG/ML SDV ONE (11:03)
[2018-07-09] MEDS ORDERED: Bupivacaine 0.25% 10 ML SDV ONE (11:03)
[2018-07-09 11:35] VITALS: BP 111/56; PULSE 60
--- NOTE | 2018-07-09 20:38 | ANES ---
DATE OF SERVICE: 07/09/2018 PAIN CLINIC NOTE INDICATION: Latrice is a 78-year-old female patient referred to us by Dr. Stein for epidural steroid injection and trigger point injections today. The patient has had both of these several times in the past and is well aware of the risks and benefits related to both procedures and wishes to proceed with them today. Please refer to the doctor's notes for ICD-10 code and diagnosis. TECHNIQUE: The patient was sat at the edge of the bed, LAMIN will be done first. Lower back lumbar region was cleaned with Betadine x3. Sterile drape was placed. 1% lidocaine skin wheal and deep was done. A 17-gauge Tuohy needle was inserted at approximately the L4-L5 position. Loss of resistance was achieved. Negative paresthesia, negative heme, and negative CSF. I then proceeded to give the patient 7 mL of sterile normal saline with 2 mL of 0.25% Sensorcaine and 1 mL of 40 mg Depo-Medrol. The Tuohy needle was then flushed and withdrawn. Sterile drape was taken down. Betadine was cleaned off the back and a Band-Aid was applied to the puncture site for hemostasis. The patient tolerated that procedure without difficulty. I then turned my attention to trigger points. The patient wanted me to focus mostly on her lower back lumbar region, mostly on the right side. Alcohol was used to clean that area. I was able to easily identify approximately 15 to 16 trigger points across the lower back lumbar region. 1 to 2 mL of 0.5% Sensorcaine was injected into those areas. More than 3 muscle groups were injected today. The patient tolerated that procedure as well without difficulty. Please refer to the nurse's notes for vital signs. After the appropriate amount of time, the patient will be discharged per ACU protocol. Brady Givens CRNA /[id number]
== END 2018-07-09 11:37 | disposition home or self-care (01) ==
LOC: JP.PAIN 10:54
PROVIDERS: ATTEND Family Medicine
DX: M79.10 Myalgia, unspecified site (principal); M46.1 Sacroiliitis, not elsewhere classified; M48.07 Spinal stenosis, lumbosacral region; M43.07 Spondylolysis, lumbosacral region; M54.5 Low back pain
CPT/HCPCS: 20553; 62322; J1030; J3490

== ENCOUNTER 2022-12-06 13:18 | Emergency (ER) | payer MEDICARE, BC ==
[2022-12-06 13:25] VITALS: BP 163/53; PULSE 60
== END 2022-12-06 16:27 | disposition home or self-care (01) ==
LOC: JP.ED 13:18
DX: T63.441A Toxic effect of venom of bees, accidental (unintentional), initial encounter (principal); I25.10 Atherosclerotic heart disease of native coronary artery without angina pectoris; E78.00 Pure hypercholesterolemia, unspecified; E11.51 Type 2 diabetes mellitus with diabetic peripheral angiopathy without gangrene; I10 Essential (primary) hypertension; I25.2 Old myocardial infarction; E66.9 Obesity, unspecified; Z91.030 Bee allergy status; Z88.2 Allergy status to sulfonamides; Z91.040 Latex allergy status; Z88.0 Allergy status to penicillin; Z88.8 Allergy status to other drugs, medicaments and biological substances; Z95.1 Presence of aortocoronary bypass graft; Z68.24 Body mass index [BMI] 24.0-24.9, adult
CPT/HCPCS: 99283